=== PATIENT | male | born 2000 | race Caucasian/White ===

== ENCOUNTER 2019-04-23 23:50 | Emergency (ER) | payer SELFPAY ==
[2019-04-24] VITALS: BP 156/86; PULSE 80; RESP 16; TEMP 36.9; O2SAT 97; BMI 22.5
--- NOTE | 2019-04-24 00:09 | ED_ITS ---
Entered by Oly Doll, acting as scribe for Griffin Little DO HPI - Skin/Abscess/Foreign Bdy General: Chief complaint: Skin/Abscess/Foreign Body Stated complaint: R EYE SWELLING Time Seen by Provider: 04/24/19 00:09 Source: patient Mode of arrival: ambulatory Limitations: no limitations History of Present Illness: HPI narrative: 18 yo m came to the er pov for abscess to the rt side of the face. Onset was 4 days ago. Pt states that he poked it with a needle to try and drain it but not a lot came out. Pt states that he had some chills last night. MD complaint: abscess/boil Tetanus up to date: yes Location: face Severity: mild Quality: sharp Pain Consistency: constant Relieving factors: none Exacerbating factors: none Associated symptoms: Reports no associated symptoms; Deny chills, fever(s), nausea or vomiting Treatments prior to arrival: none Review of Systems General: Reports: other (negative unless marked) Const: Denies: fever or chills Eyes: Denies: change in vision or blurry vision ENMT: Reports: facial/sinus pain; Denies: painful swallowing, swelling of lips/tongue, bleeding gums, dental pain, Change in hearing, nose bleeds or post nasal drip Card: Denies: chest pain, irregular heart rhythm, edema, swelling of feet/ankles, shortness of breath on exertion or shortness of breath when lying down Resp: Denies: shortness of breath, productive cough, non-productive cough or wheezing GI: Reports: abdominal pain; Denies: nausea, vomiting, rectal pain, blood in stool or black tarry stool : Denies: difficulty urinating or blood in urine Skin/Breast: Denies: rash, itching or redness Neuro: Denies: headache, dizziness, vertigo, confusion or seizure-like activity PFSH ED PFSH: Statuses (acute, chronic, etc) shown below reflect problem list status as previously entered and may not be historically accurate Social History Smoking and tobacco status: current every day smoker Procedures Abscess I/D Site: face Side (if applicable): right Sedation/analgesia: fentanyl Local Anesthetic: lidocaine 1% Amount of anesthesia used (mL): 5 Technique: incised with #11 blade Irrigation: No Packing used?: plain Course Vital Signs: Vital signs: Vital Signs Temperature 98.5 F 04/24/19 01:30 Pulse Rate 67 04/24/19 01:30 Respiratory Rate 16 04/24/19 01:30 Blood Pressure 131/65 04/24/19 01:30 Pulse Oximetry 98 04/24/19 01:30 Discharge Plan Discharge Patient Disposition: Home, Self-Care Clinical Impression: Abscess of skin or subcutaneous tissue Qualifiers: Site of cutaneous abscess: face Qualified Code(s): L02.01 - Cutaneous abscess of face Condition: Stable Prescriptions: New Bactrim DS 800-160 mg tablet 2 tab PO BID 10 Days Qty: 40 RF: 0 ketorolac 10 mg tablet 10 mg PO Q8H 1 Days Qty: 10 RF: 0 Discharge Orders: Discharge Order (Routine); Ordered 04/24/19 Ordered By: Griffin Little Referrals: Mendel Iglesias MD [Physician] - 1-3 days Discharge Diet: Advance as tolerated Discharge Activity: Resume usual activity Patient Instructions: Abscess (ED) Activity Restrictions/Additional Instructions: Return for worsening swelling, redness, pain despite 3 doses of antibiotics, significant pain with any eyeball movement, worsening of the vision, vomiting liquids or medications, other concerning symptoms. Keep packing in up to 48 hours. You should be seen on Friday for a wound check. This can happen either at urgent care center, or at the ENT surgeons office. Call Friday morning for an appointment with ENT. Discharge Date/Time: 04/24/19 01:31 Coding Level of Care Code ED Fishing Rod Marker for vishal Villalobos The documentation recorded by the Lavon gray Stephanie Lyn, accurately reflects the service I personally performed and the decisions made by Sidney epstein Jeremy John, DO Apr 23, 2019 23:50
[2019-04-24] MEDS: ondansetron 2 mg/ML SDV 2 mL 4 MG IVP (00:33)
[2019-04-24 00:34] VITALS: RESP 16
[2019-04-24] MEDS: fentaNYL 50 mcg/mL INJ 2mL 150 MCG IVP (00:34)
[2019-04-24 01:16] VITALS: RESP 12; O2SAT 99
[2019-04-24] MEDS: oxyCODONE-APAP 5-325 mg Tablet 2 TAB PO (01:16)
[2019-04-24] MEDS: sulfamethoxazole-trimeth DS 160-800 mg Tablet 2 TAB PO (01:17)
[2019-04-24 01:30] VITALS: BP 131/65; PULSE 67; RESP 16; TEMP 36.9; O2SAT 98
--- NOTE | 2019-04-27 10:38 | DCPLANNER ---
water/wastewater project manager had message to scheduled a follow up appointment for patient with Dr. Iglesias, ENT. water/wastewater project manager called the office of Dr. Iglesias, spoke with Etelvina, gave clinic patients information. Clinic will call case maker and patient with appointment information.
--- NOTE | 2019-05-06 10:19 | DCPLANNER ---
adult manager called the ENT clinic, patient did not have an appointment scheduled with clinic. Patient went to [facility] to have packing removed.
== END 2019-04-24 01:31 | disposition home or self-care (01) ==
PROVIDERS: Emergency Provider Emergency Medicine
DX: L02.01 Cutaneous abscess of face (principal); F17.210 Nicotine dependence, cigarettes, uncomplicated
CPT/HCPCS: 10060; 96374; 96375; 99282; 99283; J2405; J3010

== ENCOUNTER → 2020-10-03 14:18 | Outpatient (BNVA) | payer OTHER, SELFPAY | PROVIDERS: Visit Provider Nurse Practitioner Family | DX: Z20.822 Contact with and (suspected) exposure to COVID-19 (principal); J06.9 Acute upper respiratory infection, unspecified | CPT/HCPCS: 87635 ==

== ENCOUNTER 2021-10-03 17:57 | Emergency (ER) | payer OTHER, SELFPAY ==
--- NOTE | 2021-10-03 17:58 | ECG_ITS ---
[facility] Test Date: 2021-10-03 Pat Name: Hugo Degroot Department: Room: Gender: Male It Telecom Technician: : 2000 Requested By: Garfield Millard Order Number: [id number] Malika MD: Segundo Conway M.D. Measurements Intervals [place] Rate: 85 P: 78 OR: 182 QRS: 91 QRSD: 102 T: 59 QT: 385 QTc: 459 Interpretive Statements SINUS RHYTHM LEFT ATRIAL ENLARGEMENT [-0.15mV P-WAVE IN V1/V2] BORDERLINE RIGHT AXIS DEVIATION [QRS AXIS > 90] POSSIBLE RIGHT VENTRICULAR CONDUCTION DELAY [RSR (QR) IN V1/V2] ST DEVIATION AND MODERATE T-WAVE ABNORMALITY, CONSIDER ANTERIOR ISCHEMIA [-0.1+ mV T-WAVE IN V3/V4] No previous ECG available for comparison Electronically Signed On 10-04-2021 21:13:01 CDT by Segundo Conway M.D. [email or web address]/[id number]
[2021-10-03 18:28] VITALS: BP 101/58; PULSE 108; RESP 16; TEMP 36.9; O2SAT 99; BMI 24.3
== END 2021-10-03 19:16 | disposition left against medical advice (07) ==
PROVIDERS: Emergency Provider Family Medicine
DX: Z53.21 Procedure and treatment not carried out due to patient leaving prior to being seen by health care provider (principal)
CPT/HCPCS: 93005

== ENCOUNTER 2021-10-04 07:57 | Emergency (ER) | payer OTHER, SELFPAY ==
[2021-10-04] VITALS (9 sets, daily range): BP systolic 114–133; BP diastolic 45–89; PULSE 73–89; RESP 16–18; TEMP 36.4; O2SAT 96–100; BMI 24.3
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
--- NOTE | 2021-10-04 08:21 | ECG_ITS ---
[facility] Test Date: 2021-10-04 Pat Name: Hugo Degroot Department: Room: Gender: Male Director Museum Or Zoo: : 2000 Requested By: Marito Hunter Order Number: [id number] Malika MD: Segundo Conway M.D. Measurements Intervals [place] Rate: 71 P: -15 GA: 185 QRS: -31 QRSD: 105 T: -13 QT: 358 QTc: 390 Interpretive Statements SINUS RHYTHM POSSIBLE LEFT ATRIAL ENLARGEMENT [-0.1mV P-WAVE IN V1/V2] LEFT AXIS DEVIATION [QRS AXIS < -30] POSSIBLE RIGHT VENTRICULAR CONDUCTION DELAY [RSR (QR) IN V1/V2] POSSIBLE LEFT VENTRICULAR HYPERTROPHY [VOLTAGE CRITERIA PLUS LAE OR QRS WIDENING] MODERATE ST DEPRESSION [0.05+ mV ST DEPRESSION] Compared to ECG 10/03/2021 18:36:57 Left-axis deviation now present ST (T wave) deviation now present T-wave abnormality no longer present Possible ischemia no longer present Electronically Signed On 10-04-2021 21:15:04 CDT by Segundo Conway M.D. [email or web address]/[id number]
[2021-10-04] MEDS: LORazepam 1 mg Tablet PO (09:02)
[2021-10-04] MEDS: ondansetron 2 mg/ML SDV 2 mL 4 MG IVP (09:13)
[2021-10-04] MEDS: sodium chloride 0.9% 1,000 ML 999 ML IV (09:13)
[2021-10-04 09:22] LABS: Basophils % 0.4 %; Eosinophils % 0.4 %; Hematocrit 49.1 % (42.0-52.0); Hemoglobin 16.2 g/dL (11.7-16.6); Lymphocytes # 1.6 10^3/uL (0.8-4.8); Lymphocytes % 15.9 %; Mean Corpuscular Hemoglobin 31.4 pg (28.0-34.0); Mean Corpuscular Volume 95.2 fl (80-94); Mean Platelet Volume 10.5 fL (7.4-10.4); Monocytes # 0.6 10^3/uL (0.2-0.9); Monocytes % 6.2 %; Neutrophils # 7.58 10^3/uL (1.8-7.7); Neutrophils % 76.8 %; Nucleated Red Blood Cells % 0 %; Platelet Count 213 10^3/cmm (130-400); Red Blood Count 5.16 10^6/uL (4.1-5.3); Red Cell Distribution Width 11.9 % (12.1-15.1); White Blood Count 9.9 10^3/uL (4.0-10.0)
[2021-10-04 09:44] LABS: Alanine Aminotransferase 13 U/L (0-41); Albumin Level 4.9 g/dL (3.5-5.2); Alkaline Phosphatase 88 IU/L (40-130); Anion Gap 17.4 (5-19); Aspartate Amino Transferase 15 U/L (0-40); Blood Urea Nitrogen 9 mg/dL (6-20); Calcium 10.1 mg/dL (8.5-10.5); Carbon Dioxide 24 mmol/L (22-29); Chloride 104 mmol/L (98-107); Globulin 2.4 g/dL (1.3-4.6); Glomerular Filtration Rate 104.6 mL/min (90-130); Glucose 77 mg/dL (65-115); Lipase 12 U/L (13-60); Osmolality Calculated 291 mOsm/kg (285-295); Potassium 3.4 mmol/L (3.5-5.1); Sodium 142 mmol/L (136-145); Total Bilirubin 0.9 mg/dL (0.15-1.2); Total Protein 7.3 g/dL (6.6-8.7)
[2021-10-04 09:58] LABS: Add Urine Microscopic? NO; Charge for UA Resulting for Rev
[2021-10-04 10:10] LABS: Bilirubin Urine Neg (Negative); Blood Urine Neg (Negative); Glucose Urine UA Norm (Normal); Ketones Urine Negative (Negative); Leukocyte Esterase Urine Negative (Negative); Nitrate Urine Negative (Negative); Protein Urine Neg (Negative); Urine Appearance Clear (CLEAR); Urine Color Yellow (Yellow); Urobilinogen Urine Norm (Negative); pH Urine 7 (5-7)
[2021-10-04] MEDS: metoclopramide 5 mg/mL SDV 2 mL 10 MG IVP (10:38)
[2021-10-04] MEDS: diphenhydrAMINE 50 mg/mL SDV 1mL IVP (11:29)
== END 2021-10-04 12:23 | disposition home or self-care (01) ==
PROVIDERS: Emergency Provider Physician Assistant
DX: R11.0 Nausea (principal); F41.9 Anxiety disorder, unspecified; F17.210 Nicotine dependence, cigarettes, uncomplicated
CPT/HCPCS: 80053; 81003; 83690; 85025; 93005; 96361; 96374; 96375; 99284; J1200; J2405; J2765; J2930; J7030

== ENCOUNTER 2021-10-06 09:18 | Emergency (ER) | payer OTHER, SELFPAY ==
[2021-10-06 09:20] VITALS: BP 156/101; PULSE 778; RESP 16; TEMP 36.7; O2SAT 100; BMI 24.3
--- NOTE | 2021-10-06 09:24 | ECG_ITS ---
[facility] Test Date: 2021-10-06 Pat Name: Hugo Degroot Department: Room: Gender: Male Wellness Nurse Rn: : 2000 Requested By: Jose Carpio Order Number: [id number] Malika MD: Segundo Conway M.D. Measurements Intervals [place] Rate: 76 P: 67 NE: 161 QRS: 89 QRSD: 101 T: 61 QT: 373 QTc: 419 Interpretive Statements SINUS RHYTHM LEFT ATRIAL ENLARGEMENT [-0.15mV P-WAVE IN V1/V2] INCOMPLETE RIGHT BUNDLE BRANCH BLOCK [90+ ms QRS DURATION, TERMINAL R IN V1/V2, 40+ ms S IN I/aVL/V4/V5/V6] ST DEVIATION AND MODERATE T-WAVE ABNORMALITY, CONSIDER ANTERIOR ISCHEMIA [-0.1+ mV T-WAVE IN V3/V4] Compared to ECG 10/04/2021 08:29:43 Incomplete right bundle-branch block now present T-wave abnormality now present Possible ischemia now present Left-axis deviation no longer present ST (T wave) deviation no longer present Electronically Signed On 10-06-2021 20:15:57 CDT by Segundo Conway M.D. [id number]
--- NOTE | 2021-10-06 09:24 | XRR_ITS ---
PROCEDURE INFORMATION: Exam: XR Chest Exam date and time: 10/06/2021 9:50 AM Age: 21 years old Clinical indication: Dyspnea; Patient HX: Anxiety; Additional info: Dizziness TECHNIQUE: Imaging protocol: Radiologic exam of the chest. Views: 1 view. COMPARISON: No relevant prior studies available. FINDINGS: Lungs: There are normal lung volumes without interstitial or airspace opacities. Pleural spaces: There are no pleural effusions or pneumothorax. Heart/Mediastinum: The heart size is normal. The mediastinal contour is normal. The trachea is in the midline. Bones/joints: No acute abnormalities. XR/XR chest 1V portable [id number] IMPRESSION: No chest radiographic evidence of acute cardiopulmonary disease.
[2021-10-06 09:45] VITALS: BP 148/85; PULSE 63; RESP 16; O2SAT 98
[2021-10-06 09:52] LABS: Basophils # 0.1 10^3/uL (0.0-0.1); Basophils % 0.6 %; Eosinophils % 0.4 %; Hematocrit 52.4 % (42.0-52.0); Hemoglobin 18.1 g/dL (11.7-16.6); Lymphocytes # 1.6 10^3/uL (0.8-4.8); Lymphocytes % 18.9 %; Mean Corpuscular HGB Conc 34.5 g/dL (30.0-36.0); Mean Corpuscular Hemoglobin 31.6 pg (28.0-34.0); Mean Corpuscular Volume 91.6 fl (80-94); Mean Platelet Volume 10.7 fL (7.4-10.4); Monocytes # 0.3 10^3/uL (0.2-0.9); Neutrophils # 6.42 10^3/uL (1.8-7.7); Nucleated Red Blood Cells % 0 %; Platelet Count 210 10^3/cmm (130-400); Red Blood Count 5.72 10^6/uL (4.1-5.3); Red Cell Distribution Width 11.8 % (12.1-15.1); White Blood Count 8.5 10^3/uL (4.0-10.0)
--- NOTE | 2021-10-06 09:58 | W.ED.GENADLT ---
HPI - General Adult General: Chief complaint: General Medical Stated complaint: DEHYDRATION; ANXIETY Time Seen by Provider: 10/06/21 09:19 History of Present Illness: Patient presents with feeling of dizziness when he stands up along with severe anxiety. Patient has been seen in the ER couple times with negative evaluations. Patient reports that he was given hydroxyzine and that seems to help a little bit with his anxiety but he is continue to feel like he has anxiety issues. Patient reports that he used to use marijuana daily all day long but stopped approximately 5 days ago. Patient symptoms started a couple days ago shortly after that. Patient is concerned that he still might be a little bit dehydrated. Denies shortness of breath, chest pain, fevers chills nausea or vomiting. Associated symptoms: Deny chest pain, dyspnea, headache(s), nausea, rash, palpitations or vomiting Review of Systems Const: Denies: fever(s) or chills Card: Denies: chest pain or palpitations Resp: Denies: dyspnea, productive cough or wheezing GI: Denies: abdominal pain, nausea or vomiting : Denies: flank pain or difficulty urinating Musc: Denies: neck pain, back pain or extremity pain Skin/Breast: Denies: rash or pruritus Neuro: Reports: dizziness; Denies: headache(s) Psych: Reports: anxiety PFSH ED PFSH: Medical History No pertinent family history Surgical History No pertinent past surgical history Social History Smoking and tobacco status: current every day smoker Alcohol intake: current Physical Exam Const: COMMON NORMALS: no acute distress, average body habitus and patient oriented x3 HENMT: COMMON NORMALS: normocephalic, atraumatic and hearing grossly normal bilaterally HEAD & SCALP: normocephalic and atraumatic Eye: COMMON NORMALS: Equal, round and reactive pupils present and EOMs intact bilaterally PUPIL: Yes Equal, round and reactive pupils present Resp: COMMON NORMALS: normal respiratory effort, No retractions, No use of accessory muscles and clear to auscultation bilaterally AUSCULTATION: clear to auscultation bilaterally Cardio: COMMON NORMALS: regular rate and regular rhythm RATE: regular rate RHYTHM: regular rhythm GI: COMMON NORMALS: Soft to palpation and non-tender PALPATION: Yes Soft to palpation Extremity: COMMON NORMALS: normal to inspection and capillary refill normal Neuro: COMMON NORMALS: patient oriented x3, CN's II-XII intact bilaterally, moves all extremities and no focal motor deficits Psych: COMMON NORMALS: mental status grossly normal SPEECH: Yes rapid MOOD & AFFECT: Yes anxious Skin: COMMON NORMALS: no rashes or lesions noted and turgor normal GENERAL SKIN EXAM: no rashes or lesions noted and turgor normal Course Vital Signs: Vital signs: Vital Signs Temperature 98.1 F 10/06/21 09:20 Pulse Rate 63 10/06/21 09:45 Respiratory Rate 16 10/06/21 09:45 Blood Pressure 148/85 10/06/21 09:45 Pulse Oximetry 98 10/06/21 09:45 [facility] - General Adult Medical Decision Making Patient symptoms likely due to anxiety with probably some withdrawal from marijuana since he reports he used to use marijuana daily all day long and has not used in 4 to 5 days. Discussed need for patient to follow-up with behavioral health next week to help with some coping skills and long-term management. Patient stable and discharged home Lab Data : 10/06/21 09:45 10/06/21 09:45 Radiology Impressions Chest X-Ray 10/06/21 09:24 IMPRESSION: No chest radiographic evidence of acute cardiopulmonary disease. Laboratory Results WBC 8.5 10^3/uL (4.0-10.0) 10/06/21 09:45 RBC 5.72 10^6/uL (4.1-5.3) H 10/06/21 09:45 Hgb 18.1 g/dL (11.7-16.6) H 10/06/21 09:45 Hct 52.4 % (42.0-52.0) H 10/06/21 09:45 MCV 91.6 fl (80-94) 10/06/21 09:45 MCH 31.6 pg (28.0-34.0) 10/06/21 09:45 MCHC 34.5 g/dL (30.0-36.0) 10/06/21 09:45 RDW 11.8 % (12.1-15.1) L 10/06/21 09:45 Plt Count 210 10^3/cmm (130-400) 10/06/21 09:45 MPV 10.7 fL (7.4-10.4) H 10/06/21 09:45 Neut % (Auto) 76.0 % 10/06/21 09:45 Lymph % (Auto) 18.9 % 10/06/21 09:45 [place] % (Auto) 4.0 % 10/06/21 09:45 Eos % (Auto) 0.4 % 10/06/21 09:45 Baso % (Auto) 0.6 % 10/06/21 09:45 Neut # (Auto) 6.42 10^3/uL (1.8-7.7) 10/06/21 09:45 Lymph # (Auto) 1.6 10^3/uL (0.8-4.8) 10/06/21 09:45 [place] # (Auto) 0.3 10^3/uL (0.2-0.9) 10/06/21 09:45 Eos # (Auto) 0.0 10^3/uL (0.0-0.8) 10/06/21 09:45 Baso # (Auto) 0.1 10^3/uL (0.0-0.1) 10/06/21 09:45 Nucleated RBC % (auto) 0 % 10/06/21 09:45 Nucleated RBCs # 0.0 /100WBC 10/06/21 09:45 Sodium 145 mmol/L (136-145) 10/06/21 09:45 Potassium 3.8 mmol/L (3.5-5.1) 10/06/21 09:45 Chloride 103 mmol/L (98-107) 10/06/21 09:45 Carbon Dioxide 28 mmol/L (22-29) 10/06/21 09:45 Anion Gap 17.8 (5-19) 10/06/21 09:45 BUN 9 mg/dL (6-20) 10/06/21 09:45 Creatinine 0.8 mg/dL (0.7-1.2) 10/06/21 09:45 GFR Calculation 119.8 mL/min (90-130) 10/06/21 09:45 Glucose 115 mg/dL (65-115) 10/06/21 09:45 Calculated Osmolality 300 mOsm/kg (285-295) H 10/06/21 09:45 Calcium 10.7 mg/dL (8.5-10.5) H 10/06/21 09:45 Magnesium 1.8 mg/dL (1.7-2.3) 10/06/21 09:45 Total Bilirubin 0.6 mg/dL (0.15-1.2) 10/06/21 09:45 AST 13 U/L (0-40) 10/06/21 09:45 ALT 14 U/L (0-41) 10/06/21 09:45 Alkaline Phosphatase 90 IU/L (40-130) 10/06/21 09:45 Troponin T Gen 5 ng/L 11 ng/L (0-15) 10/06/21 09:45 Total Protein 7.7 g/dL (6.6-8.7) 10/06/21 09:45 Albumin 5.7 g/dL (3.5-5.2) H 10/06/21 09:45 Globulin 2.0 g/dL (1.3-4.6) 10/06/21 09:45 Urine Color Straw (Yellow) 10/06/21 10:40 Urine Appearance Clear (CLEAR) 10/06/21 10:40 Urine pH 7 (5-7) 10/06/21 10:40 Ur Specific Prim 1.005 (1.005-1.030) 10/06/21 10:40 Urine Protein Neg (Negative) 10/06/21 10:40 Urine Glucose (UA) Norm (Normal) 10/06/21 10:40 Urine Ketones Negative (Negative) 10/06/21 10:40 Urine Blood Neg (Negative) 10/06/21 10:40 Urine Nitrate Negative (Negative) 10/06/21 10:40 Urine Bilirubin Neg (Negative) 10/06/21 10:40 Urine Urobilinogen Norm mg/dL (Negative) 10/06/21 10:40 Ur Leukocyte Esterase Negative (Negative) 10/06/21 10:40 Urine Opiates Screen Negative ng/mL (Negative) 10/06/21 10:40 Ur Barbiturates Screen Negative ng/mL (Negative) 10/06/21 10:40 Ur Phencyclidine Scrn Negative ng/mL (Negative) 10/06/21 10:40 Ur Amphetamines Screen Negative ng/mL (Negative) 10/06/21 10:40 U Benzodiazepines Scrn Negative ng/mL (Negative) 10/06/21 10:40 Urine Cocaine Screen Negative ng/mL (Negative) 10/06/21 10:40 U Marijuana (THC) Screen Positive ng/mL (Negative) H 10/06/21 10:40 EKG Data EKG 1: I personally reviewed and interpreted this EKG as follows: EKG interpretation date: 10/06/21 EKG interpretation time: 09:33 Interpretation: nsr, hr 76, pr 161, qtc 403, unchanged from 10/04/21 Computer generated interpretation: Chest X-Ray 10/06/21 09:24 IMPRESSION: No chest radiographic evidence of acute cardiopulmonary disease. Discharge Plan Discharge Condition: Stable Prescriptions: No Action ondansetron 4 mg tablet,disintegrating 4 mg PO Q8H PRN (Reason: nausea and vomiting) Qty: 20 0RF Vistaril 50 mg capsule 50 mg PO Q8H PRN (Reason: acute anxiety) Qty: 30 0RF Coding Level of Care Code ED Painter Assistant for Chg Fwd Exam Comprehensive
[2021-10-06] MEDS: lactated ringers 1,000 ML 999 ML IV (10:03)
[2021-10-06 10:14] LABS: Alanine Aminotransferase 14 U/L (0-41); Albumin Level 5.7 g/dL (3.5-5.2); Alkaline Phosphatase 90 IU/L (40-130); Anion Gap 17.8 (5-19); Aspartate Amino Transferase 13 U/L (0-40); Blood Urea Nitrogen 9 mg/dL (6-20); Calcium 10.7 mg/dL (8.5-10.5); Carbon Dioxide 28 mmol/L (22-29); Chloride 103 mmol/L (98-107); Glomerular Filtration Rate 119.8 mL/min (90-130); Glucose 115 mg/dL (65-115); Magnesium 1.8 mg/dL (1.7-2.3); Osmolality Calculated 300 mOsm/kg (285-295); Potassium 3.8 mmol/L (3.5-5.1); Sodium 145 mmol/L (136-145); Total Bilirubin 0.6 mg/dL (0.15-1.2); Total Protein 7.7 g/dL (6.6-8.7)
[2021-10-06 10:16] LABS: Troponin T (5th) Once 11 ng/L (0-15)
[2021-10-06 10:47] LABS: Add Urine Microscopic? NO; Charge for UA Resulting for Rev
[2021-10-06 11:03] LABS: Bilirubin Urine Neg (Negative); Blood Urine Neg (Negative); Glucose Urine UA Norm (Normal); Ketones Urine Negative (Negative); Leukocyte Esterase Urine Negative (Negative); Nitrate Urine Negative (Negative); Protein Urine Neg (Negative); Specific Gravity, Urine 1.005 (1.005-1.030); Urine Appearance Clear (CLEAR); Urine Color Straw (Yellow); Urobilinogen Urine Norm (Negative); pH Urine 7 (5-7)
[2021-10-06 11:12] LABS: Amphetamines Screen Urine Negative (Negative); Barbiturates Screen Urine Negative (Negative); Benzodiazepines Screen Urine Negative (Negative); Cocaine Screen Urine Negative (Negative); Opiate Screen Urine Negative (Negative); PCP Screen Urine Negative (Negative); THC Screen Urine Positive (Negative)
== END 2021-10-06 11:34 | disposition home or self-care (01) ==
PROVIDERS: Emergency Provider Student in an Organized Health Care Education/Training Program
DX: R42 Dizziness and giddiness (principal); F41.9 Anxiety disorder, unspecified; F17.210 Nicotine dependence, cigarettes, uncomplicated
CPT/HCPCS: 71045; 80053; 80306; 81003; 83735; 84484; 85025; 93005; 96360; 99285

== ENCOUNTER 2022-05-02 18:31 | Emergency (ER) | payer OTHER, SELFPAY ==
[2022-05-02 19:15] VITALS: BP 146/84; PULSE 74; RESP 17; TEMP 37.1; O2SAT 98; BMI 26.2
--- NOTE | 2022-05-02 19:40 | XRR_ITS ---
PROCEDURE INFORMATION: Exam: XR Right Tibia and Fibula Exam date and time: 05/02/2022 7:54 PM Age: 21 years old Clinical indication: Pain; Lower leg; Right; Patient HX: Kicked freezer 04/26/2022; Additional info: Pain and swelling TECHNIQUE: Imaging protocol: Radiologic exam of the Right tibia and fibula. Views: 2 views. COMPARISON: No relevant prior studies available. FINDINGS: Bones/joints: Normal. Soft tissues: Lower kaplan soft tissue swelling. XR/XR tibia fibula RT 2V [id number] IMPRESSION: 1. No acute osseous findings. 2. Lower kaplan soft tissue swelling.
--- NOTE | 2022-05-02 19:40 | XRR_ITS ---
PROCEDURE INFORMATION: Exam: XR Right Ankle Exam date and time: 05/02/2022 7:54 PM Age: 21 years old Clinical indication: Pain; Ankle; Right; Patient HX: Kicked freezer 04/26/2022; Additional info: Pain and swelling after trauma TECHNIQUE: Imaging protocol: Radiologic exam of the Right ankle. Views: 3 or more views. COMPARISON: No relevant prior studies available. FINDINGS: Bones/joints: Normal. Soft tissues: Soft tissue swelling. XR/XR ankle RT min 3V* [id number] IMPRESSION: Negative for osseous injury.
--- NOTE | 2022-05-02 19:46 | ED_ITS ---
HPI - Extremity Problem General: Chief complaint: Extremity Injury, Lower Stated complaint: right leg injury Time Seen by Provider: 05/02/22 19:46 History of Present Illness: 21-year-old gentleman without significant past medical history presenting to the emergency department for leg injury. He reports a few days ago getting angry and kicking a freezer. Primarily the had initial impact on the lateral anterior surface of his kaplan however also hit his foot. He reports not having significant pain initially but however has had increased swelling, pain, tingling. He does have a history of poor circulation. He notes obvious contusion. Symptoms not improved with ibuprofen. No other specific changes in health, exacerbating, or alleviating factors identified. Onset (ago): hour(s) Pain Consistency: constant Location: lower extremity Quality: aching Relieving factors: nothing Exacerbating factors: weight bearing, walking and palpation Associated symptoms: Reports no associated symptoms Review of Systems General: Reports: 10 or more systems reviewed and unremarkable except in HPI and below PFSH ED PFSH: Medical History No pertinent family history Surgical History No pertinent past surgical history Social History Smoking and tobacco status: current every day smoker Alcohol intake: current Physical Exam Const: COMMON NORMALS: alert GENERAL APPEARANCE: cooperative and well developed HENMT: COMMON NORMALS: normocephalic and atraumatic HEAD & SCALP: normocephalic and atraumatic THROAT: posterior oropharynx normal Eye: COMMON NORMALS: conjunctivae normal CONJUNCTIVA: Yes conjunctivae normal SCLERA: sclerae normal Neck/C-Spine: COMMON NORMALS: supple GENERAL: Yes trachea midline Resp: COMMON NORMALS: clear to auscultation bilaterally EFFORT & INSPECTION: Yes able to speak in complete sentences AUSCULTATION: clear to auscultation bilaterally Cardio: COMMON NORMALS: regular rate and regular rhythm RATE: regular rate RHYTHM: regular rhythm GI: COMMON NORMALS: Soft to palpation PALPATION: Yes Soft to palpation and No Tenderness to palpation present (GI) Extremity: GENERAL: Yes normal exam except as noted and No edema Neuro: COMMON NORMALS: moves all extremities SENSORIUM/ORIENTATION: Yes alert and No Orientation impaired Psych: COMMON NORMALS: mental status grossly normal and Normal thought process present THOUGHT PROCESS: Normal thought process present Course Vital Signs: Vital signs: Vital Signs Temperature 98.8 F 05/02/22 19:15 Pulse Rate 83 05/02/22 20:55 Respiratory Rate 20 H 05/02/22 20:55 Blood Pressure 146/84 05/02/22 19:15 Pulse Oximetry 100 05/02/22 20:55 MDM - Extremity (Nontraumatic) Medical Decision Making 22-year-old male who presented with right lower extremity injury and contusion secondary to kicking stationary object. Exam notable for contusion and patient to the anterior distal right kaplan and right lateral ankle. Tenderness palpation. CMS intact. Patient Dors history of. Patient leg temperature/color is similar compared to contralateral non Traumatically injured side. X-rays negative. Most likely etiology of symptoms is soft tissue injury and contusion. Patient have underlying dementia seizure given distribution of bruising and regions of tenderness to palpation. Patient given analgesia with improvement. The results of ED evaluation were discussed with the patient including prescriptions and/or symptomatic cares (if applicable) including appropriate and responsible use, followup plan, and return precautions. The patient verbalized understanding and felt safe for discharge. Medical Records I reviewed the patient's medical records. Lab Data I reviewed the patient's lab results. Radiology Impressions Ankle X-Ray 05/02/22 19:40 IMPRESSION: Negative for osseous injury. Tibia/Fibula X-Ray 05/02/22 19:40 IMPRESSION: 1. No acute osseous findings. 2. Lower kaplan soft tissue swelling. Discharge Plan Discharge Patient Disposition: Home Clinical Impression: Ankle sprain and strain, Contusion of multiple sites of right leg Condition: Stable Prescriptions: New oxycodone 5 mg tablet 5 mg PO Q4H PRN (Reason: pain) Qty: 10 0RF No Action ondansetron 4 mg tablet,disintegrating 4 mg PO Q8H PRN (Reason: nausea and vomiting) Qty: 20 0RF Vistaril 50 mg capsule 50 mg PO Q8H PRN (Reason: acute anxiety) Qty: 30 0RF Discharge Orders: Discharge ED (Routine); Ordered 05/02/22 Ordered By: Rony Gonzalez Discharge Diet: Usual diet Discharge Activity: Increase activity as tolerated Patient Instructions: Ankle Sprain (ED), Contusion in Adults (ED), Opioid Safety Activity Restrictions/Additional Instructions: Thank you for visiting the emergency department. You were seen and evaluated for leg injury. The exact cause of your symptoms is unclear though likely related to soft tissue deep bruising and ligamentous strain. You may use [id number] medications such as acetaminophen and ibuprofen for pain however please do not exceed the daily recommended dosage as listed on the packaging and please keep in mind that many namebrand medications contain the same active ingredients. Please avoid these medications if previously instructed to do so by another physician due to other underlying medical condition. I will prescribe oxycodone for severe pain, use this cautiously. Please follow-up with your primary care provider. If pain persists I recommend follow-up with orthopedics or podiatry. Return to the emergency department for uncontrolled symptoms or anything else that you are concerned about and feel needs emergency department evaluation. Coding Level of Care Code ED Driver Material Handler for Violet Villalobos
[2022-05-02] MEDS: oxyCODONE 5 mg IR Tab/Cap PO (20:48)
[2022-05-02 20:55] VITALS: PULSE 83; RESP 20; O2SAT 100
== END 2022-05-02 20:55 | disposition home or self-care (01) ==
PROVIDERS: Emergency Provider Emergency Medicine
DX: S93.401A Sprain of unspecified ligament of right ankle, initial encounter (principal); S96.911A Strain of unspecified muscle and tendon at ankle and foot level, right foot, initial encounter; S80.11XA Contusion of right lower leg, initial encounter; S90.01XA Contusion of right ankle, initial encounter; W22.09XA Striking against other stationary object, initial encounter
CPT/HCPCS: 73590; 73610; 99283

== ENCOUNTER 2022-08-01 07:23 | Emergency (ER) | payer OTHER, SELFPAY ==
[2022-08-01 07:28] VITALS: BP 156/91; PULSE 96; RESP 16; TEMP 36.8; O2SAT 98; BMI 27.2
--- NOTE | 2022-08-01 07:39 | CT_ITS ---
WS: [id number] CT HEAD NONCONTRAST HISTORY: first migraine headache TECHNIQUE: Contiguous axial imaging performed through the brain in 2.5 mm imaging. Bone and soft tiss ue windows. Sagittal and coronal reformats reviewed. All CT scans at [facility] use at least one of these dose optimization techniques: automated exposure control; mA and/or kV adjustment per pa tient size (includes targeted exams where dose is matched to clinical indication); or iterative recon struction. DLP: 1040.73 mGy.cm COMPARISON: None available. No acute intracranial hemorrhage, midline shift or mass effect. No atrophy or prior infarcts or herniation. Ventricles: Normal size with no hydrocephalus. Paranasal sinuses: As visualized are clear. Mastoid air cells: Well pneumatized. Calvarium and scalp: Skull is intact with no soft tissue edema or swelling. CT/CT head wo con* [id number] IMPRESSION: Negative head CT.
[2022-08-01 07:46] LABS: Basophils % 0.2 %; Eosinophils # 0.1 10^3/uL (0.0-0.8); Eosinophils % 0.8 %; Hemoglobin 18.2 g/dL (11.7-16.6); Lymphocytes # 0.8 10^3/uL (0.8-4.8); Lymphocytes % 8.4 %; Mean Corpuscular HGB Conc 34.3 g/dL (30.0-36.0); Mean Corpuscular Hemoglobin 31.4 pg (28.0-34.0); Mean Corpuscular Volume 91.5 fl (80-94); Mean Platelet Volume 10.4 fL (7.4-10.4); Monocytes # 0.4 10^3/uL (0.2-0.9); Monocytes % 4.7 %; Neutrophils # 8.08 10^3/uL (1.8-7.7); Neutrophils % 85.7 %; Nucleated Red Blood Cells % 0 %; Platelet Count 175 10^3/cmm (130-400); Red Blood Count 5.79 10^6/uL (4.1-5.3); Red Cell Distribution Width 12.2 % (12.1-15.1); White Blood Count 9.4 10^3/uL (4.0-10.0)
[2022-08-01] MEDS: ondansetron 2 mg/ML SDV 2 mL 4 MG IVP (07:47)
[2022-08-01] MEDS: sodium chloride 0.9% 1,000 ML 999 ML IV (07:47)
--- NOTE | 2022-08-01 07:50 | ED_ITS ---
HPI - Headache General: Chief Complaint: Nausea/Vomiting/Diarrhea Stated Complaint: n/v/headache Time Seen by Provider: 08/01/22 07:25 History of Present Illness: Patient is a 22-year-old male who comes to the ED with headache, nausea and vomiting. Patient denies any history of migraine headaches and says this is the worst headache he has ever had. Symptoms started yesterday. Headache is described as a throbbing type pain in the frontal region of scalp. He rates the headache a 6 out of 10 and says it was worse this morning before he took the 800 mg of ibuprofen. He has been having nausea and vomiting along with this headache. Lights make headache worse. Denies any neurological symptoms such as numbness tingling or weakness to 1 side of his body or face or vision changes. Associated symptoms: Reports nausea and vomiting; Deny chest pain, fever(s) or rash Review of Systems Const: Denies: fever(s), chills or fatigue Eyes: Denies: change in vision or eye discomfort ENMT: Denies: throat pain, odynophagia, nasal discharge or nasal congestion Card: Denies: chest pain, palpitations, edema, swelling of feet/ankles, dyspnea on exertion or orthopnea Resp: Denies: dyspnea, productive cough or non-productive cough GI: Reports: nausea and vomiting; Denies: abdominal pain, diarrhea, constipation or hematochezia : Denies: flank pain, difficulty urinating, dysuria or hematuria Musc: Denies: neck pain, back pain or extremity swelling Skin/Breast: Denies: rash or new lesions Neuro: Reports: headache(s); Denies: numbness in extremities or weakness in extremities [facility] ED PFSH: Medical History No pertinent family history Surgical History No pertinent past surgical history Social History Smoking and tobacco status: current every day smoker Alcohol intake: current Substance/Drug Use: current Physical Exam Const: COMMON NORMALS: no acute distress, patient oriented x3, healthy appearing and alert HENMT: COMMON NORMALS: normocephalic HEAD & SCALP: normocephalic MOUTH: Normal oral and palatal mucosa present THROAT: posterior oropharynx normal and uvula midline Eye: COMMON NORMALS: Equal, round and reactive pupils present, EOMs intact bilaterally and conjunctivae normal CONJUNCTIVA: Yes conjunctivae normal PUPIL: Yes Equal, round and reactive pupils present Neck/C-Spine: COMMON NORMALS: supple GENERAL: Yes normal visual inspection Resp: COMMON NORMALS: normal respiratory effort, No retractions, No use of accessory muscles and clear to auscultation bilaterally AUSCULTATION: clear to auscultation bilaterally Cardio: COMMON NORMALS: regular rate, regular rhythm, S1 normal heart sound present, S2 normal heart sound present, No gallops present (Cardio), No clicks p resent (Cardio), No murmurs present (Cardio) and Peripheral pulses 2+ throughout RATE: regular rate RHYTHM: regular rhythm HEART SOUNDS: S1 normal heart sound present and S2 normal heart sound present PERIPHERAL PULSES: Peripheral pulses 2+ throughout GI: COMMON NORMALS: Normal to inspection, nondistended, normoactive bowel sounds present, Soft to palpation, non-tender and no masses PALPATION: Yes Soft to palpation : COMMON NORMALS: Yes no CVA tenderness BLADDER/KIDNEY EXAM: Yes no CVA tenderness Back/Pelvis: COMMON NORMALS: no CVA tenderness Extremity: COMMON NORMALS: normal to inspection Neuro: COMMON NORMALS: patient oriented x3, CN's II-XII intact bilaterally, moves all extremities, no focal motor deficits, no sensory deficits noted and gait normal SENSORIUM/ORIENTATION: Yes alert SPEECH: speech normal GAIT: Yes Normal gait present Skin: GENERAL SKIN EXAM: dry skin Course Vital Signs: Vital signs: Vital Signs Temperature 98.2 F 08/01/22 07:28 Pulse Rate 76 08/01/22 08:50 Respiratory Rate 18 08/01/22 08:50 Blood Pressure 137/72 08/01/22 08:50 Pulse Oximetry 100 08/01/22 08:50 Oxygen Delivery Me thod Room Air 08/01/22 08:09 MDM - Headache Medical Decision Making Patient is a 22-year-old male who comes to the ED with headache, nausea and vo miting. Patient denies any history of migraine headaches and says this is the worst headache he has ever had. Symptoms started yesterday. Headache is described as a throbbing type pain in the frontal region of scalp. He rates the headache a 6 out of 10 and says it was worse this morning before he took the 800 mg of ibuprofen. He has been having nausea and vomiting along with this headache. Lights make headache worse. Denies any neurological symptoms such as numbness tingling or weakness to 1 side of his body or face or vision changes. Vitals are stable. Exam is normal and neuro exam shows no deficits. Labs are all unremarkable. Head CT shows no acute findings. Patient was given a dose of IV fluids, nausea meds, Benadryl, Decadron and sumatriptan. His headache completely resolved. He was stable for discharge home and diagnosed with migraine headache. Told to follow-up with his PCP in the next week for reevaluation. Return to ED precautions given. Patient understood and agreed with plan. Lab Data I reviewed the patient's lab results. 08/01/22 07:36 08/01/22 07:[address] 08/01/22 07:39 IMPRESSION: Negative head CT. Laboratory Results WBC 9.4 10^3/uL (4.0-10.0) 08/01/22 07:36 RBC 5.79 10^6/uL (4.1-5.3) H 08/01/22 07:36 Hgb 18.2 g/dL (11.7-16.6) H 08/01/22 07:36 Hct 53.0 % (42.0-52.0) H 08/01/22 07:36 MCV 91.5 fl (80-94) 08/01/22 07:36 MCH 31.4 pg (28.0-34.0) 08/01/22 07:36 MCHC 34.3 g/dL (30.0-36.0) 08/01/22 07:36 RDW 12.2 % (12.1-15.1) 08/01/22 07:36 Plt Count 175 10^3/cmm (130-400) 08/01/22 07:36 MPV 10.4 fL (7.4-10.4) 08/01/22 07:36 Neut % (Auto) 85.7 % 08/01/22 07:36 Lymph % (Auto) 8.4 % 08/01/22 07:36 [place] % (Auto) 4.7 % 08/01/22 07:36 Eos % (Auto) 0.8 % 08/01/22 07:36 Baso % (Auto) 0.2 % 08/01/22 07:36 Neut # (Auto) 8.08 10^3/uL (1.8-7.7) H 08/01/22 07:36 Lymph # (Auto) 0.8 10^3/uL (0.8-4.8) 08/01/22 07:36 [place] # (Auto) 0.4 10^3/uL (0.2-0.9) 08/01/22 07:36 Eos # (Auto) 0.1 10^3/uL (0.0-0.8) 08/01/22 07:36 Baso # (Auto) 0.0 10^3/uL (0.0-0.1) 08/01/22 07:36 Nucleated RBC % (auto) 0 % 08/01/22 07:36 Nucleated RBCs # 0.0 /100WBC 08/01/22 07:36 Sodium 136 mmol/L (136-145) 08/01/22 07:36 Potassium 3.5 mmol/L (3.5-5.1) 08/01/22 07:36 Chloride 99 mmol/L (98-107) 08/01/22 07:36 Carbon Dioxide 24 mmol/L (22-29) 08/01/22 07:36 Anion Gap 16.5 (5-19) 08/01/22 07:36 BUN 11 mg/dL (6-20) 08/01/22 07:36 Creatinine 0.8 mg/dL (0.7-1.2) 08/01/22 07:36 GFR Calculation 118.8 mL/min (90-130) 08/01/22 07:36 Glucose 112 mg/dL (65-115) 08/01/22 07:36 Calculated Osmolality 282 mOsm/kg (285-295) L 08/01/22 07:36 Calcium 9.2 mg/dL (8.5-10.5) 08/01/22 07:36 Total Bilirubin 0.7 mg/dL (0.15-1.2) 08/01/22 07:36 AST 16 U/L (0-40) 08/01/22 07:36 ALT 20 U/L (0-41) 08/01/22 07:36 Alkaline Phosphatase 81 U/L (40-130) 08/01/22 07:36 Total Protein 7.2 g/dL (6.6-8.7) 08/01/22 07:36 Albumin 4.5 g/dL (3.5-5.2) 08/01/22 07:36 Globulin 2.7 g/dL (1.3-4.6) 08/01/22 07:36 Lipase 16 U/L (13-60) 08/01/22 07:36 Urine Color Yellow (Yellow) 08/01/22 07:46 Urine Appearance Clear (CLEAR) 08/01/22 07:46 Urine pH 6 (5-7) 08/01/22 07:46 Ur Specific [place] 1.025 (1.005-1.030) 08/01/22 07:46 Urine Protein Neg (Negative) 08/01/22 07:46 Urine Glucose (UA) Norm (Normal) 08/01/22 07:46 Urine Ketones 1+ (Negative) H 08/01/22 07:46 Urine Blood Neg (Negative) 08/01/22 07:46 Urine Nitrate Negative (Negative) 08/01/22 07:46 Urine Bilirubin Neg (Negative) 08/01/22 07:46 Urine Urobilinogen 1 mg/dL (Negative) H 08/01/22 07:46 Ur Leukocyte Esterase Negative (Negative) 08/01/22 07:46 Discharge Plan Discharge Patient Disposition: Home Clinical Impression: Migraine headache Qualifiers: Migraine type: without aura Status migrainosus presence: without status migrainosus Intractability: not intractable Qualified Code(s): G43.009 - Migraine without aura, not intractable, without status migrainosus Condition: Stable Prescriptions: No Action buspirone 10 mg tablet 10 mg PO BID trazodone 50 mg tablet 50 mg PO DAILY ondansetron 8 mg tablet,disintegrating 8 mg PO Q8H PRN (Reason: nausea and vomiting) 5 Days Qty: 15 0RF ibuprofen 600 mg tablet 600 mg PO Q8H PRN (Reason: pain) Qty: 60 0RF ondansetron 4 mg tablet,disintegrating 4 mg PO Q8H PRN (Reason: nausea and vomiting) Qty: 20 0RF Vistaril 50 mg capsule 50 mg PO Q8H PRN (Reason: acute anxiety) Qty: 30 0RF oxycodone 5 mg tablet 5 mg PO Q4H PRN (Reason: pain) Qty: 10 0RF Discharge Orders: Discharge ED (Routine); Ordered 08/01/22 Ordered By: Marito Hunter Referrals: Nadja Nance PA [Primary Care Provider] - Discharge Diet: Regular Discharge Activity: Increase activity as tolerated Patient Instructions: Migraine Headache (ED) Activity Restrictions/Additional Instructions: Follow-up with medical provider as directed. Continue taking all home medications as previously prescribed. Return to the ER or your medical provider if condition worsens. Please read and understand discharge instructions. Thank you for choosing [facility] [place] for your healthcare needs today. Please realize this is an emergency room and that we are providing you with a medical screening exam and this may not be complete and all inclusive of all the testing and or work up that you may need to determine your ailment or severity of your illness. It is very important that you follow up as instructed or that you return to the Emergency Department should you have concerns or if your condition changes or worsens in any way. Stand Alone Forms: Work/School Release Coding Level of Care Code ED Rn Internal Medicine for Violet Villalobos
[2022-08-01 07:51] LABS: Add Urine Microscopic? NO; Charge for UA Resulting for Rev
[2022-08-01] MEDS: diphenhydrAMINE 50 mg/mL SDV 1mL 25 MG IVP (07:58)
[2022-08-01] MEDS: dexamethasone 10 mg/mL INJ IVP (07:59)
[2022-08-01] MEDS: SUMAtriptan 6 mg/0.5 mL SDV SUBCUT (07:59)
[2022-08-01 08:02] LABS: Alanine Aminotransferase 20 U/L (0-41); Albumin Level 4.5 g/dL (3.5-5.2); Alkaline Phosphatase 81 U/L (40-130); Anion Gap 16.5 (5-19); Aspartate Amino Transferase 16 U/L (0-40); Blood Urea Nitrogen 11 mg/dL (6-20); Calcium 9.2 mg/dL (8.5-10.5); Carbon Dioxide 24 mmol/L (22-29); Chloride 99 mmol/L (98-107); Globulin 2.7 g/dL (1.3-4.6); Glomerular Filtration Rate 118.8 mL/min (90-130); Glucose 112 mg/dL (65-115); Lipase 16 U/L (13-60); Osmolality Calculated 282 mOsm/kg (285-295); Potassium 3.5 mmol/L (3.5-5.1); Sodium 136 mmol/L (136-145); Total Bilirubin 0.7 mg/dL (0.15-1.2); Total Protein 7.2 g/dL (6.6-8.7)
[2022-08-01 08:03] LABS: Bilirubin Urine Neg (Negative); Blood Urine Neg (Negative); Glucose Urine UA Norm (Normal); Ketones Urine 1+ (Negative); Leukocyte Esterase Urine Negative (Negative); Nitrate Urine Negative (Negative); Protein Urine Neg (Negative); Specific Gravity, Urine 1.025 (1.005-1.030); Urine Appearance Clear (CLEAR); Urine Color Yellow (Yellow); Urobilinogen Urine 1 mg/dL (Negative); pH Urine 6 (5-7)
[2022-08-01 08:09] VITALS: BP 146/89; PULSE 74; RESP 18; O2SAT 98
[2022-08-01 08:50] VITALS: BP 137/72; PULSE 76; RESP 18; O2SAT 100
== END 2022-08-01 08:51 | disposition home or self-care (01) ==
PROVIDERS: Emergency Provider Physician Assistant; PCP Physician Assistant
DX: G43.009 Migraine without aura, not intractable, without status migrainosus (principal); F17.210 Nicotine dependence, cigarettes, uncomplicated
CPT/HCPCS: 70450; 80053; 81003; 83690; 85025; 96361; 96372; 96374; 96375; 99284; J1100; J1200; J2405; J3030; J7030

== ENCOUNTER 2022-09-08 09:05 | Emergency (ER) | payer OTHER, SELFPAY ==
[2022-09-08 09:13] VITALS: BP 145/102; PULSE 100; RESP 18; TEMP 36.7; O2SAT 96; BMI 29.6
--- NOTE | 2022-09-08 09:16 | XRR_ITS ---
PROCEDURE INFORMATION: Exam: XR Chest Exam date and time: 09/08/2022 9:41 AM Age: 22 years old Clinical indication: Cough and dyspnea; Additional info: Dyspnea/cough TECHNIQUE: Imaging protocol: Radiologic exam of the chest. Views: 1 view. COMPARISON: CR XR chest 1V portable [id number] 10/06/2021 9:50 AM FINDINGS: Lungs: Unremarkable. No consolidation. Pleural spaces: Unremarkable. No pleural effusion. No pneumothorax. Heart/Mediastinum: Unremarkable. No cardiomegaly. Bones/joints: Unremarkable. No interval changes are seen comparing to prior examination XR/XR chest 1V portable [id number] IMPRESSION: No acute findings.
--- NOTE | 2022-09-08 09:34 | W.ED.ANXIETY ---
HPI - Anxiety General: Chief Complaint: Anxiety Stated Complaint: Amandeep RUSSELL Time Seen by Provider: 09/08/22 09:16 Source: patient Mode of arrival: ambulatory History of Present Illness: 22-year-old male presents emergency room with complaints of anxiety. He is having some shortness of breath and minimally productive cough. He mentions anxiety may be producing some of it. He is a regular smoker he recently began going through divorce proceedings and is evidently moving back to [place] tomorrow. Denies any fever sweats or chills. He mentioned to the nurse he thinks about suicide sometimes when asked specifically about it he says for the last couple of years whenever he drinks heavily he has suicidal thoughts but has never advanced any lethality on them before he denies any suicidal thoughts at this time. MD complaint: anxiety Associated symptoms: Reports short of breath; Deny anorexia, chest pain, chills, confusion, diaphoresis, fever(s), headache(s), malaise, nausea, palpitations, syncope, vomiting or weakness Review of Systems Const: Denies: fever(s), chills, fatigue, malaise or diaphoresis ENMT: Denies: throat pain, ear or mastoid pain, nasal discharge or nasal congestion Card: Denies: chest pain, palpitations or syncope Resp: Reports: dyspnea and productive cough; Denies: non-productive cough GI: Denies: abdominal pain, nausea or vomiting : Denies: flank pain, dysuria, urinary frequency or urinary urgency Skin/Breast: Denies: rash or pruritus Neuro: Denies: headache(s) or confusion PFS ED PFSH: Medical History No pertinent family history Surgical History No pertinent past surgical history Social History Smoking and tobacco status: current every day smoker Alcohol intake: current Substance/Drug Use: current Physical Exam Const: COMMON NORMALS: no acute distress GENERAL APPEARANCE: cooperative and comfortable ORIENTATION/CONSCIOUSNESS: Yes awake, Yes oriented to person, Yes oriented to place and Yes oriented to time HENMT: COMMON NORMALS: normocephalic, atraumatic and hearing grossly normal bilaterally HEAD & SCALP: normocephalic and atraumatic Resp: COMMON NORMALS: normal respiratory effort, No retractions, No use of accessory muscles and clear to auscultation bilaterally AUSCULTATION: clear to auscultation bilaterally Cardio: COMMON NORMALS: regular rate, regular rhythm and No murmurs present (Cardio) RATE: regular rate RHYTHM: regular rhythm GI: COMMON NORMALS: Soft to palpation and No hepatosplenomegaly present AUSCULTATION: Yes normoactive bowel sounds PALPATION: Yes Soft to palpation, No Tenderness to palpation present (GI), No Guarding due to palpation present (GI) and Yes No hepatosplenomegaly present Extremity: COMMON NORMALS: normal to inspection, capillary refill normal, no clubbing, cyanosis or edema, no calf tenderness and no pedal edema Neuro: SENSORIUM/ORIENTATION: Yes oriented to person, Yes oriented to place and Yes oriented to time Skin: COMMON NORMALS: no rashes or lesions noted GENERAL SKIN EXAM: no rashes or lesions noted Course Vital Signs: Vital signs: Vital Signs Temperature 98.0 F 09/08/22 09:13 Pulse Rate 100 09/08/22 09:13 Respiratory Rate 18 09/08/22 09:13 Blood Pressure 145/102 09/08/22 09:13 Pulse Oximetry 96 09/08/22 09:13 Oxygen Delivery Me thod Room Air 09/08/22 09:13 MDM - Anxiety Medical Decision Making Chest x-ray unremarkable. Patient is having productive cough would start him on doxycycline and albuterol. He is not wheezing that monitor him and hold off on steroids as I think that may exacerbate his anxiety issues. Encouraged him to follow-up at the crisis intervention or [facility] if he has further problems. As to his mentions about suicidality. This been ongoing issue it only occurs when he drinks he is not advance lethality discussed Dr. Quiroz who is on-call. Patient is saying he does not feel suicidal at this time Dr. Vergara does not feel that admission to [facility] regarding this would be helpful for the patient. Medical Records I reviewed the patient's medical records. Lab Data I reviewed the patient's lab results. 09/08/22 09:53 09/08/22 09:53 Radiology Impressions Chest X-Ray 09/08/22 09:16 IMPRESSION: No acute findings. Laboratory Results WBC 7.4 10^3/uL (4.0-10.0) 09/08/22 09:53 RBC 5.83 10^6/uL (4.1-5.3) H 09/08/22 09:53 Hgb 19.0 g/dL (11.7-16.6) H 09/08/22 09:53 Hct 54.4 % (42.0-52.0) H 09/08/22 09:53 MCV 93.3 fl (80-94) 09/08/22 09:53 MCH 32.6 pg (28.0-34.0) 09/08/22 09:53 MCHC 34.9 g/dL (30.0-36.0) 09/08/22 09:53 RDW 12.8 % (12.1-15.1) 09/08/22 09:53 Plt Count 209 10^3/cmm (130-400) 09/08/22 09:53 MPV 9.7 fL (7.4-10.4) 09/08/22 09:53 Neut % (Auto) 63.4 % 09/08/22 09:53 Lymph % (Auto) 24.5 % 09/08/22 09:53 [place] % (Auto) 9.5 % 09/08/22 09:53 Eos % (Auto) 1.5 % 09/08/22 09:53 Baso % (Auto) 1.0 % 09/08/22 09:53 Neut # (Auto) 4.67 10^3/uL (1.8-7.7) 09/08/22 09:53 Lymph # (Auto) 1.8 10^3/uL (0.8-4.8) 09/08/22 09:53 [place] # (Auto) 0.7 10^3/uL (0.2-0.9) 09/08/22 09:53 Eos # (Auto) 0.1 10^3/uL (0.0-0.8) 09/08/22 09:53 Baso # (Auto) 0.1 10^3/uL (0.0-0.1) 09/08/22 09:53 Nucleated RBC % (auto) 0 % 09/08/22 09:53 Nucleated RBCs # 0.0 /100WBC 09/08/22 09:53 Sodium 140 mmol/L (136-145) 09/08/22 09:53 Potassium 4.0 mmol/L (3.5-5.1) 09/08/22 09:53 Chloride 103 mmol/L (98-107) 09/08/22 09:53 Carbon Dioxide 27 mmol/L (22-29) 09/08/22 09:53 Anion Gap 14.0 (5-19) 09/08/22 09:53 BUN 7 mg/dL (6-20) 09/08/22 09:53 Creatinine 0.8 mg/dL (0.7-1.2) 09/08/22 09:53 GFR Calculation 118.8 mL/min (90-130) 09/08/22 09:53 Glucose 83 mg/dL (65-115) 09/08/22 09:53 Calculated Osmolality 287 mOsm/kg (285-295) 09/08/22 09:53 Calcium 9.5 mg/dL (8.5-10.5) 09/08/22 09:53 Total Bilirubin 0.8 mg/dL (0.15-1.2) 09/08/22 09:53 AST 18 U/L (0-40) 09/08/22 09:53 ALT 23 U/L (0-41) 09/08/22 09:53 Alkaline Phosphatase 90 U/L (40-130) 09/08/22 09:53 Total Protein 7.3 g/dL (6.6-8.7) 09/08/22 09:53 Albumin 4.8 g/dL (3.5-5.2) 09/08/22 09:53 Globulin 2.5 g/dL (1.3-4.6) 09/08/22 09:53 Discharge Plan Discharge Patient Disposition: Home Clinical Impression: Bronchitis Condition: Stable Prescriptions: New doxycycline hyclate 100 mg capsule 100 mg PO BID 10 Days Qty: 20 0RF albuterol sulfate 90 mcg/actuation HFA aerosol inhaler 2 inh INHALATION Q4H PRN (Reason: shortness of breath or wheezing) Qty: 18 0RF No Action buspirone 10 mg tablet 10 mg PO BID trazodone 50 mg tablet 50 mg PO BEDTIME ibuprofen 600 mg tablet 600 mg PO Q8H PRN (Reason: pain) Qty: 60 0RF paroxetine HCl 20 mg tablet 20 mg PO BEDTIME Ativan 1 mg Tablet 1 mg PO TID PRN (Reason: Anxiety) albuterol sulfate 90 mcg/actuation HFA aerosol inhaler 2 puff INHALATION QID PRN (Reason: Shortness Of Breath) Discharge Orders: Discharge ED (Routine); Ordered 09/08/22 Ordered By: Zelalem Salcedo Referrals: Nadja Nance PA [Primary Care Provider] - Discharge Diet: Usual diet Discharge Activity: Increase activity as tolerated Patient Instructions: Opioid Safety, Pain Management Activity Restrictions/Additional Instructions: You were seen today for bronchitis with a productive cough and shortness of breath. Recommend to start doxycycline use albuterol as needed follow-up with your doctor if not improving in the next 5 to 7 days Stand Alone Forms: Work/School Release Coding Level of Care Code ED Lotus Notes Administrator for Violet Villalobos
--- NOTE | 2022-09-08 09:54 | PC.PHAR ---
pt states he takes care of his own medications-pt states he has ativan 1mg tid prn pt states he has from [place] doesnt remember where he filled it at ext doesnt show filled per pt kymberly melendez knows he has ativan but cant write for it per pt-
[2022-09-08 10:06] LABS: Basophils # 0.1 10^3/uL (0.0-0.1); Eosinophils # 0.1 10^3/uL (0.0-0.8); Eosinophils % 1.5 %; Hematocrit 54.4 % (42.0-52.0); Lymphocytes # 1.8 10^3/uL (0.8-4.8); Lymphocytes % 24.5 %; Mean Corpuscular HGB Conc 34.9 g/dL (30.0-36.0); Mean Corpuscular Hemoglobin 32.6 pg (28.0-34.0); Mean Corpuscular Volume 93.3 fl (80-94); Mean Platelet Volume 9.7 fL (7.4-10.4); Monocytes # 0.7 10^3/uL (0.2-0.9); Monocytes % 9.5 %; Neutrophils # 4.67 10^3/uL (1.8-7.7); Neutrophils % 63.4 %; Nucleated Red Blood Cells % 0 %; Platelet Count 209 10^3/cmm (130-400); Red Blood Count 5.83 10^6/uL (4.1-5.3); Red Cell Distribution Width 12.8 % (12.1-15.1); White Blood Count 7.4 10^3/uL (4.0-10.0)
[2022-09-08 10:23] LABS: Alanine Aminotransferase 23 U/L (0-41); Albumin Level 4.8 g/dL (3.5-5.2); Alkaline Phosphatase 90 U/L (40-130); Aspartate Amino Transferase 18 U/L (0-40); Blood Urea Nitrogen 7 mg/dL (6-20); Calcium 9.5 mg/dL (8.5-10.5); Carbon Dioxide 27 mmol/L (22-29); Chloride 103 mmol/L (98-107); Globulin 2.5 g/dL (1.3-4.6); Glomerular Filtration Rate 118.8 mL/min (90-130); Glucose 83 mg/dL (65-115); Osmolality Calculated 287 mOsm/kg (285-295); Sodium 140 mmol/L (136-145); Total Bilirubin 0.8 mg/dL (0.15-1.2); Total Protein 7.3 g/dL (6.6-8.7)
== END 2022-09-08 10:44 | disposition home or self-care (01) ==
PROVIDERS: Emergency Provider Family Medicine; PCP Physician Assistant
DX: J40 Bronchitis, not specified as acute or chronic (principal); F17.210 Nicotine dependence, cigarettes, uncomplicated
CPT/HCPCS: 71045; 80053; 85025; 99284

== ENCOUNTER 2022-10-14 14:11 | Emergency (ER) | payer OTHER, SELFPAY ==
[2022-10-14 14:59] VITALS: BP 125/83; PULSE 78; RESP 16; TEMP 36.5; O2SAT 98; BMI 24.9
--- NOTE | 2022-10-14 17:09 | ED_ITS ---
HPI - Skin/Abscess/Foreign Bdy General: Chief complaint: Skin/Abscess/Foreign Body Stated complaint: skin rash on forehead Time Seen by Provider: 10/14/22 17:07 History of Present Illness: 22-year-old male patient comes in today for complaints of crusted lesions along the forehead. Patient reports noticing the lesions starting about 1 week ago became concerned as they are starting to spread. Patient has had impetigo in the past and it reminds him of previous eruptions. Review of Systems General: Reports: 10 or more systems reviewed and unremarkable except in HPI and below Skin/Breast: Reports: new lesions PFSH ED PFSH: Medical History No pertinent family history Surgical History No pertinent past surgical history Social History Smoking and tobacco status: current every day smoker Alcohol intake: current Substance/Drug Use: current Physical Exam Const: COMMON NORMALS: alert HENMT: COMMON NORMALS: normocephalic HEAD & SCALP: normocephalic and other (Crusted lesions to scalp and forehead) Neck/C-Spine: COMMON NORMALS: full ROM Resp: COMMON NORMALS: normal respiratory effort Cardio: COMMON NORMALS: regular rate RATE: regular rate Extremity: COMMON NORMALS: normal to inspection Neuro: SENSORIUM/ORIENTATION: Yes alert Skin: LESIONS: lesion noted (Scalp and forehead) Course Vital Signs: Vital signs: Vital Signs Temperature 97.7 F 10/14/22 14:59 Pulse Rate 78 10/14/22 14:59 Respiratory Rate 16 10/14/22 14:59 Blood Pressure 125/83 10/14/22 14:59 Pulse Oximetry 98 10/14/22 14:59 Oxygen Delivery Me thod Room Air 10/14/22 14:59 MDM - Skin/Abscess/Foreign Bdy Medicial Decision Making 22-year-old male patient comes in today with crusted lesions to the scalp and forehead. On exam we note honey crusted lesions to the scalp and the forehead of individual. Minimal redness is noted to the lesions. Differential diagnosis includes impetigo/folliculitis, contact dermatitis, support dermatitis. We will go ahead and treat for impetigo with recommendations for cleaning and good hygiene. Patient reported understanding of care plan and need for follow-up or return to the ER. Discharge Plan Discharge Patient Disposition: Home Clinical Impression: Impetigo Condition: Stable Prescriptions: New amoxicillin-pot clavulanate 875-125 mg tablet 1 tab PO BID Qty: 14 0RF mupirocin 2 % ointment 1 applic topical BID Qty: 22 0RF No Action buspirone 10 mg tablet 10 mg PO BID trazodone 50 mg tablet 50 mg PO BEDTIME ibuprofen 600 mg tablet 600 mg PO Q8H PRN (Reason: pain) Qty: 60 0RF paroxetine HCl 20 mg tablet 20 mg PO BEDTIME Ativan 1 mg Tablet 1 mg PO TID PRN (Reason: Anxiety) albuterol sulfate 90 mcg/actuation HFA aerosol inhaler 2 puff INHALATION QID PRN (Reason: Shortness Of Breath) albuterol sulfate 90 mcg/actuation HFA aerosol inhaler 2 inh INHALATION Q4H PRN (Reason: shortness of breath or wheezing) Qty: 18 0RF Discharge Orders: Discharge ED (Routine); Ordered 10/14/22 Ordered By: Willi Wilkins Referrals: Nadja Nance PA [Primary Care Provider] - Discharge Diet: Usual diet Discharge Activity: Increase activity as tolerated Patient Instructions: Impetigo (ED) Activity Restrictions/Additional Instructions: Take antibiotic 1 tablet twice a day for 7 days. Use mupirocin ointment to each of the crusted lesions or any new lesions twice a day until healed. Follow-up with primary care as needed. Return to ED for new concerns. Stand Alone Forms: Work/School Release Coding Level of Care Code ED Clinical Trials Manager for Violet Villalobos
[2022-10-14] MEDS: amoxicillin-clav 875-125 mg Tablet 1 TAB PO (17:25)
== END 2022-10-14 17:27 | disposition home or self-care (01) ==
PROVIDERS: Emergency Provider Nurse Practitioner Family; PCP Physician Assistant
DX: L01.00 Impetigo, unspecified (principal); F17.210 Nicotine dependence, cigarettes, uncomplicated
CPT/HCPCS: 99283

== ENCOUNTER 2022-10-18 16:47 | Emergency (ER) | payer OTHER, SELFPAY ==
[2022-10-18 16:57] VITALS: BP 142/76; PULSE 95; RESP 17; TEMP 36.7; O2SAT 97; BMI 25.4
--- NOTE | 2022-10-18 17:16 | ECG_ITS ---
[facility] Test Date: 2022-10-18 Pat Name: Hugo Degroot Department: Room: Gender: Male Medical Assistant Float: : 2000 Requested By: Miky Garsia Order Number: [id number] Malika MD: Irais Conde M.D. Measurements Intervals Whitney Rate: 77 P: 57 NJ: 138 QRS: 95 QRSD: 99 T: 48 QT: 355 QTc: 404 Interpretive Statements SINUS RHYTHM BORDERLINE RIGHT AXIS DEVIATION [QRS AXIS > 90] LEFT VENTRICULAR HYPERTROPHY AND ST-T CHANGE [VOLTAGE CRITERIA PLUS ST/T ABNORMALITY] Compared to ECG 10/06/2021 09:33:12 Left ventricular hypertrophy now present ST (T wave) deviation now present Atrial abnormality no longer present Incomplete right bundle-branch block no longer present T-wave abnormality no longer present Possible ischemia no longer present Electronically Signed On 10-18-2022 22:55:43 CDT by Irais Conde M.D. [id number]
--- NOTE | 2022-10-18 17:26 | ED_ITS ---
HPI - Anxiety General: Chief Complaint: Anxiety Stated Complaint: anxity Time Seen by Provider: 10/18/22 17:22 History of Present Illness: 22-year-old male patient comes in today with complaints of anxiety with panic attack. Patient reports its been about 1 year since his last panic attack. Patient is on routine medications paroxetine, trazodone, and buspirone for control of his panic disorder. Patient does take lorazepam occasionally for breakthrough anxiety disorder. Patient does drink alcohol and use tobacco. Patient reports he stopped using marijuana because it increased his anxiety. Associated symptoms: Reports chest pain (Pressure) Review of Systems General: Reports: 10 or more systems reviewed and unremarkable except in HPI and below Card: Reports: chest pain (Pressure) Resp: Denies: dyspnea Psych: Reports: anxiety PFSH ED PFSH: Medical History No pertinent family history Surgical History No pertinent past surgical history Social History Smoking and tobacco status: current every day smoker Alcohol intake: current Substance/Drug Use: current Physical Exam Const: COMMON NORMALS: alert HENMT: COMMON NORMALS: normocephalic HEAD & SCALP: normocephalic Neck/C-Spine: COMMON NORMALS: full ROM Resp: COMMON NORMALS: normal respiratory effort and clear to auscultation bilaterally AUSCULTATION: clear to auscultation bilaterally Cardio: COMMON NORMALS: regular rate and regular rhythm RATE: regular rate RHYTHM: regular rhythm GI: COMMON NORMALS: Soft to palpation PALPATION: Yes Soft to palpation Extremity: COMMON NORMALS: full ROM Neuro: SENSORIUM/ORIENTATION: Yes alert Skin: COMMON NORMALS: turgor normal GENERAL SKIN EXAM: turgor normal Course Vital Signs: Vital signs: Vital Signs Temperature 98.1 F 10/18/22 16:57 Pulse Rate 88 10/18/22 17:49 Respiratory Rate 18 10/18/22 17:49 Blood Pressure 142/76 10/18/22 16:57 Pulse Oximetry 94 10/18/22 17:49 Oxygen Delivery Me thod Room Air 10/18/22 16:57 MDM - Anxiety Medical Decision Making 22-year-old male patient comes in today for complaints of increased anxiety and breakthrough panic attack. Patient reports 3 episodes of increased anxiety with chest pressure. Patient did take lorazepam prior to coming into the ER with some improvement of symptoms. On exam patient is alert and oriented. Lungs are clear to auscultation. EKG shows a sinus rhythm with a regular rate of 77 bpm. Differential diagnosis includes but not limited to panic disorder, depression or depressive disorder, suicidal homicidal ideation. Patient denies any suicidal homicidal ideation. Reviewed exam with patient with recommendations for increasing buspirone to 30 mg twice a day. Patient was also written for 10 tablets of lorazepam to use for breakthrough anxiety. Patient reported understanding of care plan and need for follow-up or return to the ER. EKG Data EKG 1: EKG interpretation date: 10/18/22 EKG interpretation time: 17:56 Prior EKG tracings: not available for review Interpretation: EKG shows sinus rhythm with a regular rate at [address] elevation or ectopy is noted. No prior exam was available for comparison. Computer generated interpretation: EKG was read as sinus rhythm, borderline right axis deviation, left ventricular hypertrophy, abnormal EKG, unconfirmed report. Discharge Plan Discharge Patient Disposition: Home Clinical Impression: Panic disorder Condition: Stable Prescriptions: New buspirone 30 mg tablet 30 mg PO BID Qty: 60 0RF lorazepam 1 mg tablet 0.5 mg PO BID PRN (Reason: anxiety) Qty: 10 0RF No Action buspirone 10 mg tablet 10 mg PO BID trazodone 50 mg tablet 50 mg PO BEDTIME ibuprofen 600 mg tablet 600 mg PO Q8H PRN (Reason: pain) Qty: 60 0RF paroxetine HCl 20 mg tablet 20 mg PO BEDTIME Ativan 1 mg Tablet 1 mg PO TID PRN (Reason: Anxiety) albuterol sulfate 90 mcg/actuation HFA aerosol inhaler 2 puff INHALATION QID PRN (Reason: Shortness Of Breath) albuterol sulfate 90 mcg/actuation HFA aerosol inhaler 2 inh INHALATION Q4H PRN (Reason: shortness of breath or wheezing) Qty: 18 0RF amoxicillin-pot clavulanate 875-125 mg tablet 1 tab PO BID Qty: 14 0RF mupirocin 2 % ointment 1 applic topical BID Qty: 22 0RF Discharge Orders: Discharge ED (Routine); Ordered 10/18/22 Ordered By: Willi Wilkins Referrals: Nadja Nance PA [Primary Care Provider] - Patient Instructions: Panic Disorder (ED) Activity Restrictions/Additional Instructions: Home and rest. Drink plenty water and fluids. Decrease caffeine and nicotine consumption as this may increase panic disorder. Take medications as prescribed . Increase buspirone to 30 mg twice a day. Continue with paroxetine and trazodone as directed. Use of lorazepam for breakthrough panic attack. Follow- up with primary care as needed. Case management will contact you with follow-up appointment with behavioral health care psychiatry services for further treatment and evaluation. Stand Alone Forms: Work/School Release Coding Level of Care Code ED Audiovisual Tech for Violet Villalobos
[2022-10-18 17:49] VITALS: PULSE 88; RESP 18; O2SAT 94
--- NOTE | 2022-10-21 10:45 | DCPLANNER ---
Addendum entered by Lian Son 10/25/22 10:21: manager utilization review received the following message from [facility] regarding referral: I attempted contact. I got a message that the wireless customer is not available. Original Note: manager utilization review had message to schedule a follow up appointment for patient with [facility]. manager utilization review sent patients information to the scheduling department at [facility]. Patients information will be printed and reviewed by Hilaria Salazar, human resources operations coordinator. Clinic will call patient with appointment information.
== END 2022-10-18 17:50 | disposition home or self-care (01) ==
PROVIDERS: Emergency Provider Nurse Practitioner Family; PCP Physician Assistant
DX: F41.0 Panic disorder [episodic paroxysmal anxiety] (principal); F17.210 Nicotine dependence, cigarettes, uncomplicated
CPT/HCPCS: 93005; 99283

== ENCOUNTER 2022-12-27 17:39 | Emergency (ER) | payer OTHER, SELFPAY ==
[2022-12-27 17:42] VITALS: PULSE 86; RESP 18; TEMP 36.8; O2SAT 100; BMI 26.1
--- NOTE | 2022-12-27 17:46 | CTR_ITS ---
PROCEDURE INFORMATION: Exam: CT Cervical Spine Without Contrast Exam date and time: 12/27/2022 5:56 PM Age: 22 years old Clinical indication: Injury or trauma; Concussion/head injury; Injury date: 12/27/22; Injury details: Fall from truck, pos loc, open laceration lt parietal region TECHNIQUE: Imaging protocol: Computed tomography of the cervical spine without contrast. Radiation optimization: All CT scans at this facility use at least one of these dose optimization techniques: automated exposure control; mA and/or kV adjustment per patient size (includes targeted exams where dose is matched to clinical indication); or iterative reconstruction. REPORTING DATA: Count of CT and Cardiac NM exams in prior 12 months: This patient has received [address] and 0 known cardiac nuclear medicine studies in the 12 months prior to the current study. COMPARISON: CT head wo con* [id number] 12/27/2022 5:51 PM RADIATION DOSE METRICS: Total DLP (mGy-cm): 145.87 FINDINGS: Bones/joints: Cervical vertebra maintain their height. There is no fracture of the posterior elements. There is slight reversal cervical curvature. Alignment is otherwise normal. There is a left paracentral osteophyte and disc protrusion at C4-C5 resulting in moderate central stenosis . There is a right paracentral osteophyte and disc protrusion at C5-C6 moderately narrowing the spinal canal to the right of midline. Mild to moderate left foraminal stenosis at C5-C6. Lungs: Lung apices are normal. Soft tissues: Unremarkable. CT/CT cervical spin wo con* [id number] IMPRESSION: 1. No fracture of the cervical spine. 2. Left paracentral osteophyte and disc protrusion at C4-C5 and right paracentral osteophyte and disc protrusion at C5-C6 moderately narrowing the spinal canal.
--- NOTE | 2022-12-27 17:46 | CTR_ITS ---
PROCEDURE INFORMATION: Exam: CT Head Without Contrast Exam date and time: 12/27/2022 5:51 PM Age: 22 years old Clinical indication: Injury or trauma; Wound, open; With loss of consciousness; Not specified; Scalp; Injury date: 12/27/22; Injury details: Fall from truck, pos loc, open laceration lt parietal region TECHNIQUE: Imaging protocol: Computed tomography of the head without contrast. Radiation optimization: All CT scans at this facility use at least one of these dose optimization techniques: automated exposure control; mA and/or kV adjustment per patient size (includes targeted exams where dose is matched to clinical indication); or iterative reconstruction. REPORTING DATA: Count of CT and Cardiac NM exams in prior 12 months: This patient has received [address] and 0 known cardiac nuclear medicine studies in the 12 months prior to the current study. COMPARISON: CT head wo con* [id number] 08/01/2022 7:50 AM RADIATION DOSE METRICS: Total DLP (mGy-cm): 1121.98 FINDINGS: Brain: No evidence of infarct. As best seen on series 6 images 45 to 51, small amount of pneumocephalus and extra-axial hematoma in the left parietal region at site of fracture. This is a small hematoma extending over a length of 11 mm with maximal thickness of 2 mm.. It is probably epidural as it is located between the calvarial fragment in the non fractured calvarium. No parenchymal hemorrhage. No subarachnoid hemorrhage. No midline shift. Cerebral ventricles: There is no hydrocephalus. No intraventricular hemorrhage. Paranasal sinuses: Visualized sinuses are unremarkable. No fluid levels. Mastoid air cells: Visualized mastoid air cells are well aerated. Bones/joints: There is a left parietal comminuted calvarial fracture with up to 8 mm of depression. Soft tissues: Left parietal scalp hematoma and laceration CT/CT head wo con* [id number] IMPRESSION: 1. Comminuted left parietal fracture with up to 8 mm. 2. Small extra-axial hematoma, probably epidural measuring up to 2 mm in thickness between fracture fragment and intact calvarium. Small amount of pneumocephalus at fracture site.
--- NOTE | 2022-12-27 17:59 | W.ED.FALL ---
HPI - Fall General: Chief Complaint: Fall Stated Complaint: Fall Time Seen by Provider: 12/27/22 17:46 Source: patient and EMS Mode of arrival: EMS Limitations: no limitations History of Present Illness: 22-year-old male who states that he is on a trailer and then on the back of a truck that was on a trailer and fell roughly 6 feet off of the truck onto gravel. States he hit his posterior head he did have a brief period of loss of consciousness has a laceration to his posterior scalp. He is complaining of some neck pain but states he has chronic neck pain denies any other injuries rates his pain a 3 out of 10 currently he has had no vomiting no diarrhea. Associated symptoms-after fall: Reports headache(s) and neck pain; Denies abdominal pain or chest pain Review of Systems Const: Denies: fever(s), chills or body aches Eyes: Denies: blurry vision or eye discomfort ENMT: Denies: throat pain or dental pain Card: Denies: chest pain Resp: Denies: dyspnea GI: Denies: abdominal pain, nausea, vomiting or diarrhea Musc: Reports: neck pain; Denies: back pain Skin/Breast: Denies: rash Neuro: Reports: headache(s) PFSH ED PFSH: Medical History No pertinent family history Surgical History No pertinent past surgical history Social History Smoking and tobacco/nicotine status: current every day tobacco/nicotine user Alcohol intake: current Substance/Drug Use: current Physical Exam Const: COMMON NORMALS: patient oriented x3 HENMT: COMMON NORMALS: normocephalic HEAD & SCALP: normocephalic OTHER: 4 cm laceration to posterior scalp Eye: COMMON NORMALS: Equal, round and reactive pupils present and EOMs intact bilaterally PUPIL: Yes Equal, round and reactive pupils present Neck/C-Spine: OTHER: in c collar Chest: COMMONS NORMALS: normal inspection of the chest and normal palpation of entire chest wall Resp: COMMON NORMALS: normal respiratory effort, No retractions, No use of accessory muscles and clear to auscultation bilaterally AUSCULTATION: clear to auscultation bilaterally Cardio: COMMON NORMALS: regular rate, regular rhythm and No murmurs present (Cardio) RATE: regular rate RHYTHM: regular rhythm GI: COMMON NORMALS: Normal to inspection, nondistended, normoactive bowel sounds present, Soft to palpation, non-tender and no masses PALPATION: Yes Soft to palpation Extremity: COMMON NORMALS: normal to inspection and full ROM Neuro: COMMON NORMALS: patient oriented x3, moves all extremities and no focal motor deficits Psych: COMMON NORMALS: mental status grossly normal, Normal thought process present and cooperative THOUGHT PROCESS: Normal thought process present Skin: COMMON NORMALS: no rashes or lesions noted and no wounds GENERAL SKIN EXAM: no rashes or lesions noted Procedures Laceration Laceration 1: Site: scalp Size (cm): 4 Description: linear Depth: simple, single layer Local Anesthetic: lidocaine 1% Amount of anesthesia used (mL): 8 Pre-repair: irrigated extensively Skin layer closed with: other (sheryl) Number of sutures: 7 Course Vital Signs: Vital signs: Vital Signs Temperature 98.2 F 12/27/22 17:42 Pulse Rate 86 12/27/22 17:42 Respiratory Rate 18 12/27/22 17:42 Pulse Oximetry 100 12/27/22 17:42 Oxygen Delivery Me thod Room Air 12/27/22 17:42 MDM - Fall Medical Decision Making Patient presents here after he fall CT does show skull fracture with a possible epidural abscess of spoke to [facility] will transfer their ER to ER for higher level of care for neurosurgery. Medical Records I reviewed the patient's medical records. Lab Data I reviewed the patient's lab results. Radiology Impressions Cervical Spine CT 12/27/22 17:46 IMPRESSION: 1. No fracture of the cervical spine. 2. Left paracentral osteophyte and disc protrusion at C4-C5 and right paracentral osteophyte and disc protrusion at C5-C6 moderately narrowing the spinal canal. Head CT 12/27/22 17:46 IMPRESSION: 1. Comminuted left parietal fracture with up to 8 mm. 2. Small extra-axial hematoma, probably epidural measuring up to 2 mm in thickness between fracture fragment and intact calvarium. Small amount of pneumocephalus at fracture site. ADDENDUM: 12/27/22 9624 THIS REPORT CONTAINS FINDINGS THAT MAY BE CRITICAL TO PATIENT CARE. HILARIA Chapman who stated Dr Garsia has seen rpt and reports no questions at 6:39 PM CDT on 12/27/2022. All radiology interpretation(s) finalized by discharge Discharge Plan Discharge Patient Disposition: Xfer Short-Term Hosp Clinical Impression: Skull fracture Condition: Stable Prescriptions: No Action buspirone 10 mg tablet 10 mg PO BID trazodone 50 mg tablet 50 mg PO BEDTIME ibuprofen 600 mg tablet 600 mg PO Q8H PRN (Reason: pain) Qty: 60 0RF paroxetine HCl 20 mg tablet 20 mg PO BEDTIME Ativan 1 mg Tablet 1 mg PO TID PRN (Reason: Anxiety) albuterol sulfate 90 mcg/actuation HFA aerosol inhaler 2 puff INHALATION QID PRN (Reason: Shortness Of Breath) albuterol sulfate 90 mcg/actuation HFA aerosol inhaler 2 inh INHALATION Q4H PRN (Reason: shortness of breath or wheezing) Qty: 18 0RF amoxicillin-pot clavulanate 875-125 mg tablet 1 tab PO BID Qty: 14 0RF mupirocin 2 % ointment 1 applic topical BID Qty: 22 0RF buspirone 30 mg tablet 30 mg PO BID Qty: 60 0RF lorazepam 1 mg tablet 0.5 mg PO BID PRN (Reason: anxiety) Qty: 10 0RF Referrals: Nadja Nance PA [Primary Care Provider] - Coding Level of Care Code ED Tunnel Kiln Operator for Violet Villalobos
[2022-12-27] MEDS: tetanus-dipt-pertussis 0.5 mL SDV IM (18:02)
[2022-12-27] MEDS: ondansetron 2 mg/ML SDV 2 mL 4 MG IVP (18:21)
[2022-12-27] MEDS: morphine 4 mg/mL SDV 1 mL IVP (18:23)
--- NOTE | 2022-12-27 18:39 | PC.NURSE ---
ED PHYSICIAN UNABLE TO ANSWER PHONE. V RAD NEEDING TO GIVE REPORT FOR HEAD CT RESULT. V RAD INFORMED, PER DR. SORENSON, NO CONCERNS REGARDING CT RESULT AT THIS TIME.
[2022-12-27 19:01] VITALS: BP 142/87; PULSE 76; RESP 16; O2SAT 97
--- NOTE | 2022-12-27 19:01 | PC.NURSE ---
7 REENA INSERTED BY ED PHYSICIAN.
== END 2022-12-27 19:19 | disposition short-term general hospital (02) ==
PROVIDERS: Emergency Provider Emergency Medicine; PCP Physician Assistant
DX: S02.0XXA Fracture of vault of skull, initial encounter for closed fracture (principal); S01.01XA Laceration without foreign body of scalp, initial encounter; F17.210 Nicotine dependence, cigarettes, uncomplicated; W17.89XA Other fall from one level to another, initial encounter; Z23 Encounter for immunization
CPT/HCPCS: 12002; 70450; 72125; 90471; 90715; 96374; 96375; 99285; J2270; J2405

== ENCOUNTER 2023-06-27 08:01 | Emergency (ER) | payer SELFPAY ==
[2023-06-27 08:04] VITALS: BP 154/92; PULSE 75; RESP 18; TEMP 36.7; O2SAT 99; BMI 24.9
--- NOTE | 2023-06-27 08:12 | W.ED.PSYCHS ---
HPI - Psych General: Chief Complaint: Anxiety Stated Complaint: Anxiety Time Seen by Provider: 06/27/23 08:03 Source: patient Mode of arrival: ambulatory History of Present Illness: 23-year-old male presents to the emergency room with complaints of anxiety. Patient is on trazodone and BuSpar has taken lorazepam as needed. He is not able to see his primary care doctor because of some financial issues and he is out of his Ativan. He has no specific complaints of illness at this time. 2 weeks ago he said he had some stomach upset but that has resolved. MD complaint: other (Anxiety) Review of Systems Const: Denies: fever(s) or chills Card: Denies: chest pain Resp: Denies: dyspnea GI: Denies: abdominal pain : Denies: dysuria, urinary frequency or urinary urgency Musc: Denies: neck pain or back pain Skin/Breast: Denies: rash [facility] ED PFSH: Medical History No pertinent family history Surgical History No pertinent past surgical history Social History Smoking and tobacco/nicotine status: current every day tobacco/nicotine user Alcohol intake: current Substance/Drug Use: current Physical Exam Const: COMMON NORMALS: no acute distress GENERAL APPEARANCE: cooperative and comfortable ORIENTATION/CONSCIOUSNESS: Yes awake, Yes oriented to person, Yes oriented to place and Yes oriented to time HENMT: COMMON NORMALS: normocephalic, atraumatic and hearing grossly normal bilaterally HEAD & SCALP: normocephalic and atraumatic Resp: COMMON NORMALS: normal respiratory effort, No retractions, No use of accessory muscles and clear to auscultation bilaterally AUSCULTATION: clear to auscultation bilaterally Cardio: COMMON NORMALS: regular rate, regular rhythm and No murmurs present (Cardio) RATE: regular rate RHYTHM: regular rhythm GI: COMMON NORMALS: Soft to palpation and No hepatosplenomegaly present AUSCULTATION: Yes normoactive bowel sounds PALPATION: Yes Soft to palpation, No Tenderness to palpation present (GI), No Guarding due to palpation present (GI) and Yes No hepatosplenomegaly present Extremity: COMMON NORMALS: normal to inspection, capillary refill normal, no clubbing, cyanosis or edema, no calf tenderness and no pedal edema Neuro: SENSORIUM/ORIENTATION: Yes oriented to person, Yes oriented to place and Yes oriented to time Skin: COMMON NORMALS: no rashes or lesions noted GENERAL SKIN EXAM: no rashes or lesions noted Course Vital Signs: Vital signs: Vital Signs Temperature 98.1 F 06/27/23 08:04 Pulse Rate 75 06/27/23 08:04 Respiratory Rate 18 06/27/23 08:17 Blood Pressure 136/79 06/27/23 09:12 Pulse Oximetry 100 06/27/23 08:17 Oxygen Delivery Me thod Room Air 06/27/23 08:17 MDM - Psych Medical Decision Making Anxiety no emergent conditions EKG shows early repull. Patient is not having any symptoms at this time. Will discharge patient home with hydroxyzine to use as needed encouraged him to follow-up with his primary care doctor Medical Records I reviewed the patient's medical records. Lab Data I reviewed the patient's lab results. No radiology studies performed this visit Discharge Plan Discharge Patient Disposition: Home Clinical Impression: Acute anxiety Condition: Stable Prescriptions: New hydroxyzine HCl 25 mg tablet 25 mg PO Q6H PRN (Reason: anxiety) Qty: 14 0RF No Action buspirone 10 mg tablet 10 mg PO BID trazodone 50 mg tablet 50 mg PO BEDTIME ibuprofen 600 mg tablet 600 mg PO Q8H PRN (Reason: pain) Qty: 60 0RF paroxetine HCl 20 mg tablet 20 mg PO BEDTIME Ativan 1 mg Tablet 1 mg PO TID PRN (Reason: Anxiety) albuterol sulfate 90 mcg/actuation HFA aerosol inhaler 2 inh INHALATION Q4H PRN (Reason: shortness of breath or wheezing) Qty: 18 0RF amoxicillin-pot clavulanate 875-125 mg tablet 1 tab PO BID Qty: 14 0RF mupirocin 2 % ointment 1 applic topical BID Qty: 22 0RF buspirone 30 mg tablet 30 mg PO BID Qty: 60 0RF lorazepam 1 mg tablet 0.5 mg PO BID PRN (Reason: anxiety) Qty: 10 0RF Discharge Orders: Discharge ED (Routine); Ordered 06/27/23 Ordered By: Zelalem Salcedo Referrals: Nadja Nance PA [Primary Care Provider] - Discharge Diet: Usual diet Discharge Activity: Increase activity as tolerated Patient Instructions: Opioid Safety, Pain Management Activity Restrictions/Additional Instructions: Thank you for choosing [facility] for your healthcare needs today. Please realize this is an emergency room and that we are providing you with a medical screening exam and this may not be complete and all inclusive of all the testing and or work up that you may need to determine your ailment or severity of your illness. It is very important that you follow up as instructed or that you return to the Emergency Department should you have concerns or if your condition changes or worsens in any way. You were seen today for anxiety. You are given hydroxyzine to use 1 every 6 hours as needed. Follow-up with your primary care doctor for further treatment options. Coding Level of Care Code ED Showplace Manager for Violet Villalobos
[2023-06-27 08:17] VITALS: BP 154/92; RESP 18; O2SAT 100
[2023-06-27] MEDS: LORazepam 2 mg Tablet PO (08:17)
--- NOTE | 2023-06-27 08:28 | ECG_ITS ---
[facility] Test Date: 2023-06-27 Pat Name: Hugo Degroot Department: Room: Gender: Male Cnc Applications Engineer: : 2000 Requested By: Zelalem Mcdaniel Order Number: [id number] Malika MD: Rogers Vogel M.D. Measurements Intervals [place] Rate: 69 P: 68 UT: 168 QRS: 91 QRSD: 97 T: 61 QT: 350 QTc: 377 Interpretive Statements SINUS RHYTHM POSSIBLE LEFT ATRIAL ENLARGEMENT [-0.1mV P-WAVE IN V1/V2] BORDERLINE RIGHT AXIS DEVIATION [QRS AXIS > 90] INCOMPLETE RIGHT BUNDLE BRANCH BLOCK [90+ ms QRS DURATION, TERMINAL R IN V1/V2, 40+ ms S IN I/aVL/V4/V5/V6] ST ELEVATION, PROBABLY EARLY REPOLARIZATION [ST ELEVATION WITH NORMALLY INFLECTED T-WAVE] NONSPECIFIC T-WAVE ABNORMALITY Compared to ECG 10/18/2022 17:22:52 Incomplete right bundle-branch block now present Early repolarization now present T-wave abnormality now present Left ventricular hypertrophy no longer present ST (T wave) deviation still present Electronically Signed On 06-27-2023 17:01:42 CDT by Rogers Vogel M.D. [id number]
[2023-06-27 09:12] VITALS: BP 136/79
== END 2023-06-27 09:34 | disposition home or self-care (01) ==
PROVIDERS: Emergency Provider Family Medicine; PCP Physician Assistant
DX: F41.9 Anxiety disorder, unspecified (principal); Z72.0 Tobacco use
CPT/HCPCS: 93005; 99283

== ENCOUNTER 2023-07-29 15:52 | Emergency (ER) | payer SELFPAY ==
[2023-07-29 15:55] VITALS: BP 107/64; PULSE 85; RESP 18; TEMP 36.6; O2SAT 98; BMI 23.7
--- NOTE | 2023-07-29 16:26 | ECG_ITS ---
[facility] Test Date: 2023-07-29 Pat Name: Hugo Degroot Department: Room: Gender: Male Feeder Catcher: : 2000 Requested By: Miky Garsia Order Number: [id number] Malika MD: Rogers Vogel M.D. Measurements Intervals [place] Rate: 70 P: 62 [place]: 166 QRS: 87 QRSD: 97 T: 52 QT: 365 QTc: 394 Interpretive Statements SINUS RHYTHM LEFT ATRIAL ENLARGEMENT [-0.15mV P-WAVE IN V1/V2] POSSIBLE RIGHT VENTRICULAR CONDUCTION DELAY [RSR (QR) IN V1/V2] ST DEVIATION AND MODERATE T-WAVE ABNORMALITY, CONSIDER ANTERIOR ISCHEMIA [-0.1+ mV T-WAVE IN V3/V4] Compared to ECG 06/27/2023 08:28:58 Possible ischemia now present Incomplete right bundle-branch block no longer present ST (T wave) deviation no longer present Early repolarization no longer present T-wave abnormality still present Electronically Signed On 07-30-2023 16:25:57 CDT by Rogers Vogel M.D. [id number]
--- NOTE | 2023-07-29 17:27 | ED_ITS ---
Documented by User: MICHELLE Vaca 07/29/23 20:20 HPI - Dizziness 2 General: Chief Complaint: Dizziness Stated Complaint: dizzy Time Seen by Provider: 07/29/23 16:54 Source: patient Mode of arrival: ambulatory Limitations: no limitations History of Present Illness: HPI Narrative: Patient is a 23-year-old male presenting to the emergency department complaining of dizziness and lightheadedness onset today. Patient notes that he stopped taking his SSRI 3 days ago due to not being able to get refills from primary care provider at [facility]. He notes that he has been increasingly anxious and depressed, and today noticed when he first stood up in the morning that he felt unbalanced on his feet. He notes that the symptoms are improved with lying supine, specifically exacerbated with standing up. He also notes he has not been taking his Ativan as needed due to not being able to get this refilled. He denies any spells of syncope, palpitations, chest pain, breathing difficulties, nausea or vomiting, or other symptoms at this time. He has no pertinent past medical history to report other than a moderately significant psychiatric history. He notes he was taking paroxetine 20 mg every day for the past couple of years prior to stopping. MD elicited complaint: dizziness and lightheadedness Onset (ago): hour(s) Timing: sudden onset Severity: moderate Description: lightheadedness and off-balance Context: other (Stopped taking SSRI 3-4 days ago) History of similar symptoms: No Exacerbating factors: change in body position Relieving factors: lying down Associated symptoms: Denies chest pain, chills, headache(s), nausea, palpitations or vomiting Associated neuro symptoms: Deny numbness in extremities Review of Systems 2 General: Reports: 10 or more systems reviewed and unremarkable except in HPI and below Const: Denies: fever(s), chills or fatigue Eyes: Denies: change in vision ENMT: Denies: throat pain, ear or mastoid pain or nasal discharge Card: Reports: lightheadedness; Denies: chest pain, palpitations or swelling of feet/ankles Resp: Denies: dyspnea, productive cough or wheezing GI: Denies: abdominal pain, nausea, vomiting, diarrhea or constipation : Denies: flank pain, difficulty urinating, dysuria or urinary frequency Musc: Denies: neck pain, back pain or joint pain Skin/Breast: Denies: rash Neuro: Reports: dizziness; Denies: headache(s), numbness in extremities or weakness in extremities Psych: Reports: anxiety and depression PFSH ED 2 PFSH: Medical History No pertinent family history Surgical History No pertinent past surgical history Social History Smoking and tobacco/nicotine status: current every day tobacco/nicotine user Alcohol intake: current Substance/Drug Use: current Physical Exam 2 Const: COMMON NORMALS: no acute distress, patient oriented x3 and no limitations GENERAL APPEARANCE: cooperative, comfortable and well developed ORIENTATION/CONSCIOUSNESS: Yes awake, Yes oriented to person, Yes oriented to place and Yes oriented to time HENMT: COMMON NORMALS: normocephalic, atraumatic and hearing grossly normal bilaterally HEAD & SCALP: normocephalic and atraumatic Eye: COMMON NORMALS: Equal, round and reactive pupils present, EOMs intact bilaterally and conjunctivae normal CONJUNCTIVA: Yes conjunctivae normal P UPIL: Yes Equal, round and reactive pupils present Neck/C-Spine: COMMON NORMALS: full ROM, supple and no JVD Resp: COMMON NORMALS: normal respiratory effort, No retractions, No use of accessory muscles and clear to auscultation bilaterally AUSCULTATION: clear to auscultation bilaterally Cardio: COMMON NORMALS: no JVD, regular rate, regular rhythm, No clicks present (Cardio), No murmurs present (Cardio) and No rub (Cardio) RATE: r egular rate RHYTHM: regular rhythm GI: COMMON NORMALS: Normal to inspection, nondistended, normoactive bowel sounds present, Soft to palpation and non-tender AUSCULTATION: Yes normoactive bowel sounds PALPATION: Yes Soft to palpation RECTAL EXAM: Yes deferred Extremity: COMMON NORMALS: normal to inspection, full ROM and capillary refill normal Neuro: COMMON NORMALS: patient oriented x3, CN's II-XII intact bilaterally, moves all extremities, no focal motor deficits and no sensory deficits noted SENSORIUM/ORIENTATION: Yes oriented to person, Yes oriented to place and Yes oriented to time Psych: COMMON NORMALS: mental status grossly normal and Normal thought process present THOUGHT PROCESS: Normal thought process present Skin: COMMON NORMALS: no rashes or lesions noted GENERAL SKIN EXAM: no rashes or lesions noted Course 2 Vital Signs: Vital signs: Vital Signs Temperature 97.9 F 07/29/23 15:55 Pulse Rate 58 L 07/29/23 18:36 Respiratory Rate 19 H 07/29/23 18:33 Blood Pressure 125/64 07/29/23 19:00 Pulse Oximetry 94 07/29/23 18:33 Oxygen Delivery Me thod Room Air 07/29/23 18:33 MDM - Dizziness Medical Decision Making Patient seen for 1 day of dizziness and lightheadedness that began this morning. He has been off of his Paxil for 3-4 days, and has not been able to get this prescription refilled. On arrival vitals are unremarkable. Physical examination normal. Lab work all unremarkable. His EKG did not demonstrate any acute explanations for being dizzy and lightheaded. Urinalysis did not show evidence of urinary tract infection. His orthostatic vital signs were nondiagnostic. I do believe his dizziness likely psychogenic secondary to cessation of his SSRI, as I gave him a dose of his normal 20 mg here in the emergency department and sent prescription to his pharmacy to take until he follows up with primary care to get refills. Strict return precautions are given and all other questions and concerns addressed at this time. Lab Data I reviewed the patient's lab results. 07/29/23 17:16 07/29/23 19:14 Laboratory Results WBC 7.63 10^3/uL (3.29-11.43) 07/29/23 17:16 RBC 5.28 10^6/uL (3.85-5.65) 07/29/23 17:16 Hgb 16.60 g/dL (11.27-16.99) 07/29/23 17:16 Hct 48.8 % (37-53) 07/29/23 17:16 MCV 92.4 fl (82-101) 07/29/23 17:16 MCH 31.4 pg (27-33) 07/29/23 17:16 MCHC 34.0 g/dL (30-55) 07/29/23 17:16 RDW 12.5 % (12.1-15.1) 07/29/23 17:16 Plt Count 159 10^3/cmm (157-399) 07/29/23 17:16 MPV 11.4 fL (7.4-10.4) H 07/29/23 17:16 Neut % (Auto) 69.7 % 07/29/23 17:16 Lymph % (Auto) 21.9 % 07/29/23 17:16 [place] % (Auto) 6.7 % 07/29/23 17:16 Eos % (Auto) 0.9 % 07/29/23 17:16 Baso % (Auto) 0.7 % 07/29/23 17:16 Neut # (Auto) 5.32 10^3/uL (1.8-7.7) 07/29/23 17:16 Lymph # (Auto) 1.7 10^3/uL (0.8-4.8) 07/29/23 17:16 [place] # (Auto) 0.5 10^3/uL (0.2-0.9) 07/29/23 17:16 Eos # (Auto) 0.1 10^3/uL (0.0-0.8) 07/29/23 17:16 Baso # (Auto) 0.1 10^3/uL (0.0-0.1) 07/29/23 17:16 Nucleated RBC % (auto) 0 % 07/29/23 17:16 Nucleated RBCs # 0.0 /100WBC 07/29/23 17:16 Sodium 143 mmol/L (136-145) 07/29/23 19:14 Potassium 3.9 mmol/L (3.5-5.1) 07/29/23 19:14 Chloride 106 mmol/L (98-107) 07/29/23 19:14 Carbon Dioxide 28 mmol/L (22-29) 07/29/23 19:14 Anion Gap 12.9 (5-19) 07/29/23 19:14 BUN 8 mg/dL (6-20) 07/29/23 19:14 Creatinine 0.7 mg/dL (0.7-1.2) 07/29/23 19:14 GFR Calculation 137.4 mL/min (90-130) H 07/29/23 19:14 Glucose 80 mg/dL (65-115) 07/29/23 19:14 Calculated Osmolality 293 mOsm/kg (285-295) 07/29/23 19:14 Calcium 8.9 mg/dL (8.5-10.5) 07/29/23 19:14 Total Bilirubin 0.5 mg/dL (0.15-1.2) 07/29/23 19:14 AST 18 U/L (0-40) 07/29/23 19:14 ALT 14 U/L (0-41) 07/29/23 19:14 Alkaline Phosphatase 83 U/L (40-130) 07/29/23 19:14 Total Protein 7.3 g/dL (6.6-8.7) 07/29/23 19:14 Albumin 4.7 g/dL (3.5-5.2) 07/29/23 19:14 Globulin 2.6 g/dL (1.3-4.6) 07/29/23 19:14 Urine Color Colorless (Yellow) 07/29/23 17:30 Urine Appearance Clear (CLEAR) 07/29/23 17:30 Urine pH 8 (5-7) H 07/29/23 17:30 Ur Specific [place] 1.010 (1.005-1.030) 07/29/23 17:30 Urine Protein Neg (Negative) 07/29/23 17:30 Urine Glucose (UA) Norm (Normal) 07/29/23 17:30 Urine Ketones Negative (Negative) 07/29/23 17:30 Urine Blood Neg (Negative) 07/29/23 17:30 Urine Nitrate Negative (Negative) 07/29/23 17:30 Urine Bilirubin Neg (Negative) 07/29/23 17:30 Prot Sulfosalicylic Acd Negative (Negative) 07/29/23 17:30 Urine Urobilinogen Norm mg/dL (Negative) 07/29/23 17:30 Ur Leukocyte Esterase Negative (Negative) 07/29/23 17:30 No radiology studies performed this visit Discharge Plan Discharge Patient Disposition: Home Clinical Impression: Dizziness Condition: Stable Prescriptions: Continued paroxetine HCl 20 mg tablet 20 mg PO BEDTIME Qty: 30 0RF No Action buspirone 10 mg tablet 10 mg PO BID trazodone 50 mg tablet 50 mg PO BEDTIME ibuprofen 600 mg tablet 600 mg PO Q8H PRN (Reason: pain) Qty: 60 0RF Ativan 1 mg Tablet 1 mg PO TID PRN (Reason: Anxiety) albuterol sulfate 90 mcg/actuation HFA aerosol inhaler 2 inh INHALATION Q4H PRN (Reason: shortness of breath or wheezing) Qty: 18 0RF amoxicillin-pot clavulanate 875-125 mg tablet 1 tab PO BID Qty: 14 0RF mupirocin 2 % ointment 1 applic topical BID Qty: 22 0RF buspirone 30 mg tablet 30 mg PO BID Qty: 60 0RF lorazepam 1 mg tablet 0.5 mg PO BID PRN (Reason: anxiety) Qty: 10 0RF hydroxyzine HCl 25 mg tablet 25 mg PO Q6H PRN (Reason: anxiety) Qty: 14 0RF Discharge Orders: Discharge ED (Routine); Ordered 07/29/23 Ordered By: Zan Liang Discharge Diet: Usual diet Discharge Activity: Increase activity as tolerated Patient Instructions: Lightheadedness (ED), Dizziness (ED) Activity Restrictions/Additional Instructions: Continue taking your Paxil. Follow-up with primary care for any refills, and for any further evaluation. Plenty of fluids. Return with any new or concerning symptoms you may have. Coding Level of Care Code ED Supervisor [employer] for [employer] Documented by User: Zelalem Salcedo DO 07/29/23 22:05 HPI - Dizziness 2 General: Chief Complaint: Dizziness Stated Complaint: dizzy Time Seen by Provider: 07/29/23 16:54 PFSH ED 2 PFSH: Medical History No pertinent family history Surgical History No pertinent past surgical history Social History Smoking and tobacco/nicotine status: current every day tobacco/nicotine user Alcohol intake: current Substance/Drug Use: current Course 2 Vital Signs: Vital signs: Vital Signs Temperature 97.9 F 07/29/23 15:55 Pulse Rate 58 L 07/29/23 18:36 Respiratory Rate 19 H 07/29/23 18:33 Blood Pressure 125/64 07/29/23 19:00 Pulse Oximetry 94 07/29/23 18:33 Oxygen Delivery Me thod Room Air 07/29/23 18:33 MDM - Dizziness Medical Decision Making Patient seen for 1 day of dizziness and lightheadedness that began this morning. He has been off of his Paxil for 3-4 days, and has not been able to get this prescription refilled. On arrival vitals are unremarkable. Physical examination normal. Lab work all unremarkable. His EKG did not demonstrate any acute explanations for being dizzy and lightheaded. Urinalysis did not show evidence of urinary tract infection. His orthostatic vital signs were nondiagnostic. I do believe his dizziness likely psychogenic secondary to cessation of his SSRI, as I gave him a dose of his normal 20 mg here in the emergency department and sent prescription to his pharmacy to take until he follows up with primary care to get refills. Strict return precautions are given and all other questions and concerns addressed at this time. Chart reviewed and patient discussed with midlevel. Agree with assessment and plan. Lab Data 07/29/23 17:16 07/29/23 19:14 Laboratory Results WBC 7.63 10^3/uL (3.29-11.43) 07/29/23 17:16 RBC 5.28 10^6/uL (3.85-5.65) 07/29/23 17:16 Hgb 16.60 g/dL (11.27-16.99) 07/29/23 17:16 Hct 48.8 % (37-53) 07/29/23 17:16 MCV 92.4 fl (82-101) 07/29/23 17:16 MCH 31.4 pg (27-33) 07/29/23 17:16 MCHC 34.0 g/dL (30-55) 07/29/23 17:16 RDW 12.5 % (12.1-15.1) 07/29/23 17:16 Plt Count 159 10^3/cmm (157-399) 07/29/23 17:16 MPV 11.4 fL (7.4-10.4) H 07/29/23 17:16 Neut % (Auto) 69.7 % 07/29/23 17:16 Lymph % (Auto) 21.9 % 07/29/23 17:16 [place] % (Auto) 6.7 % 07/29/23 17:16 Eos % (Auto) 0.9 % 07/29/23 17:16 Baso % (Auto) 0.7 % 07/29/23 17:16 Neut # (Auto) 5.32 10^3/uL (1.8-7.7) 07/29/23 17:16 Lymph # (Auto) 1.7 10^3/uL (0.8-4.8) 07/29/23 17:16 [place] # (Auto) 0.5 10^3/uL (0.2-0.9) 07/29/23 17:16 Eos # (Auto) 0.1 10^3/uL (0.0-0.8) 07/29/23 17:16 Baso # (Auto) 0.1 10^3/uL (0.0-0.1) 07/29/23 17:16 Nucleated RBC % (auto) 0 % 07/29/23 17:16 Nucleated RBCs # 0.0 /100WBC 07/29/23 17:16 Sodium 143 mmol/L (136-145) 07/29/23 19:14 Potassium 3.9 mmol/L (3.5-5.1) 07/29/23 19:14 Chloride 106 mmol/L (98-107) 07/29/23 19:14 Carbon Dioxide 28 mmol/L (22-29) 07/29/23 19:14 Anion Gap 12.9 (5-19) 07/29/23 19:14 BUN 8 mg/dL (6-20) 07/29/23 19:14 Creatinine 0.7 mg/dL (0.7-1.2) 07/29/23 19:14 GFR Calculation 137.4 mL/min (90-130) H 07/29/23 19:14 Glucose 80 mg/dL (65-115) 07/29/23 19:14 Calculated Osmolality 293 mOsm/kg (285-295) 07/29/23 19:14 Calcium 8.9 mg/dL (8.5-10.5) 07/29/23 19:14 Total Bilirubin 0.5 mg/dL (0.15-1.2) 07/29/23 19:14 AST 18 U/L (0-40) 07/29/23 19:14 ALT 14 U/L (0-41) 07/29/23 19:14 Alkaline Phosphatase 83 U/L (40-130) 07/29/23 19:14 Total Protein 7.3 g/dL (6.6-8.7) 07/29/23 19:14 Albumin 4.7 g/dL (3.5-5.2) 07/29/23 19:14 Globulin 2.6 g/dL (1.3-4.6) 07/29/23 19:14 Urine Color Colorless (Yellow) 07/29/23 17:30 Urine Appearance Clear (CLEAR) 07/29/23 17:30 Urine pH 8 (5-7) H 07/29/23 17:30 Ur Specific [place] 1.010 (1.005-1.030) 07/29/23 17:30 Urine Protein Neg (Negative) 07/29/23 17:30 Urine Glucose (UA) Norm (Normal) 07/29/23 17:30 Urine Ketones Negative (Negative) 07/29/23 17:30 Urine Blood Neg (Negative) 07/29/23 17:30 Urine Nitrate Negative (Negative) 07/29/23 17:30 Urine Bilirubin Neg (Negative) 07/29/23 17:30 Prot Sulfosalicylic Acd Negative (Negative) 07/29/23 17:30 Urine Urobilinogen Norm mg/dL (Negative) 07/29/23 17:30 Ur Leukocyte Esterase Negative (Negative) 07/29/23 17:30 Discharge Plan Discharge Patient Disposition: Home Clinical Impression: Dizziness Condition: Stable Prescriptions: Continued paroxetine HCl 20 mg tablet 20 mg PO BEDTIME Qty: 30 0RF No Action buspirone 10 mg tablet 10 mg PO BID trazodone 50 mg tablet 50 mg PO BEDTIME ibuprofen 600 mg tablet 600 mg PO Q8H PRN (Reason: pain) Qty: 60 0RF Ativan 1 mg Tablet 1 mg PO TID PRN (Reason: Anxiety) albuterol sulfate 90 mcg/actuation HFA aerosol inhaler 2 inh INHALATION Q4H PRN (Reason: shortness of breath or wheezing) Qty: 18 0RF amoxicillin-pot clavulanate 875-125 mg tablet 1 tab PO BID Qty: 14 0RF mupirocin 2 % ointment 1 applic topical BID Qty: 22 0RF buspirone 30 mg tablet 30 mg PO BID Qty: 60 0RF lorazepam 1 mg tablet 0.5 mg PO BID PRN (Reason: anxiety) Qty: 10 0RF hydroxyzine HCl 25 mg tablet 25 mg PO Q6H PRN (Reason: anxiety) Qty: 14 0RF Discharge Orders: Discharge ED (Routine); Ordered 07/29/23 Ordered By: Zan Liang Discharge Diet: Usual diet Discharge Activity: Increase activity as tolerated Patient Instructions: Lightheadedness (ED), Dizziness (ED) Activity Restrictions/Additional Instructions: Continue taking your Paxil. Follow-up with primary care for any refills, and for any further evaluation. Plenty of fluids. Return with any new or concerning symptoms you may have. Coding Level of Care Code ED Supervisor [employer] for Violet Villalobos
[2023-07-29] MEDS: PARoxetine 20 mg Tablet PO (17:31)
[2023-07-29] MEDS: sodium chloride 0.9% 1,000 ML 999 ML IV (17:32)
[2023-07-29 18:17] LABS: Basophils # 0.1 10^3/uL (0.0-0.1); Basophils % 0.7 %; Eosinophils # 0.1 10^3/uL (0.0-0.8); Eosinophils % 0.9 %; Hematocrit 48.8 % (37-53); Lymphocytes # 1.7 10^3/uL (0.8-4.8); Lymphocytes % 21.9 %; Mean Corpuscular Hemoglobin 31.4 pg (27-33); Mean Corpuscular Volume 92.4 fl (82-101); Mean Platelet Volume 11.4 fL (7.4-10.4); Monocytes # 0.5 10^3/uL (0.2-0.9); Monocytes % 6.7 %; Neutrophils # 5.32 10^3/uL (1.8-7.7); Neutrophils % 69.7 %; Nucleated Red Blood Cells % 0 %; Platelet Count 159 10^3/cmm (157-399); Red Blood Count 5.28 10^6/uL (3.85-5.65); Red Cell Distribution Width 12.5 % (12.1-15.1); White Blood Count 7.63 10^3/uL (3.29-11.43)
[2023-07-29 18:30] LABS: Add Urine Microscopic? NO; Charge for UA Resulting for Rev
[2023-07-29 18:33] VITALS: BP 128/68; PULSE 75; RESP 19; O2SAT 94
[2023-07-29 18:36] VITALS: BP 125/67; BP 129/75; BP 134/71; PULSE 58; PULSE 60; PULSE 75
[2023-07-29 18:57] LABS: Bilirubin Urine Neg (Negative); Blood Urine Neg (Negative); Glucose Urine UA Norm (Normal); Ketones Urine Negative (Negative); Leukocyte Esterase Urine Negative (Negative); Nitrate Urine Negative (Negative); Protein Urine Neg (Negative); Sulfosalicylic Acid Urine Negative (Negative); Urine Appearance Clear (CLEAR); Urine Color Colorless (Yellow); Urobilinogen Urine Norm (Negative); pH Urine 8 (5-7)
[2023-07-29 19:00] VITALS: BP 125/64
[2023-07-29 19:44] LABS: Alanine Aminotransferase 14 U/L (0-41); Albumin Level 4.7 g/dL (3.5-5.2); Alkaline Phosphatase 83 U/L (40-130); Blood Urea Nitrogen 8 mg/dL (6-20); Calcium 8.9 mg/dL (8.5-10.5); Carbon Dioxide 28 mmol/L (22-29); Chloride 106 mmol/L (98-107); Creatinine Clr Calc Pharmacy 204.7803; Globulin 2.6 g/dL (1.3-4.6); Glomerular Filtration Rate 137.4 mL/min (90-130); Glucose 80 mg/dL (65-115); Osmolality Calculated 293 mOsm/kg (285-295); Sodium 143 mmol/L (136-145); Total Bilirubin 0.5 mg/dL (0.15-1.2); Total Protein 7.3 g/dL (6.6-8.7)
[2023-07-29 20:02] LABS: Anion Gap 12.9 (5-19); Aspartate Amino Transferase 18 U/L (0-40); Potassium 3.9 mmol/L (3.5-5.1)
== END 2023-07-29 20:36 | disposition home or self-care (01) ==
PROVIDERS: Emergency Medicine; Emergency Provider Physician Assistant
DX: R42 Dizziness and giddiness (principal); Z72.0 Tobacco use
CPT/HCPCS: 36415; 80053; 81003; 85025; 93005; 99284; J7030

== ENCOUNTER 2023-11-24 22:23 | Emergency (ER) | payer SELFPAY ==
[2023-11-24 22:24] VITALS: BP 146/79; PULSE 72; RESP 16; TEMP 36.7; O2SAT 96; BMI 21.4
[2023-11-24 22:28] VITALS: BP 152/79; PULSE 69; RESP 18; O2SAT 98
--- NOTE | 2023-11-24 22:29 | ED_ITS ---
HPI - Allergic Reaction General: Chief complaint: Allergic Reaction Stated complaint: ALLERGIC REACTION Time Seen by Provider: 11/24/23 22:25 History of Present Illness: HPI narrative: 23-year-old man who took a bulk of oral THC gummy and then developed an allergic reaction. He became red and had pruritus. No shortness of breath. No throat closing. No tongue swelling. He received some Benadryl and pruritus is better and is still just a little bit red. Related Data Home Medications Medication Instructions Recorded Confirmed trazodone 50 mg tablet 50 mg PO BEDTIME 07/16/22 11/04/23 Previous Rx's Medication Instructions Recorded ibuprofen 600 mg tablet 600 mg PO Q8H PRN pain #60 tabs 07/16/22 albuterol sulfate 90 mcg/actuation 2 inh inhalation Q4H PRN shortness 09/08/22 aerosol inhaler of breath or wheezing #18 grams buspirone 30 mg tablet 30 mg PO BID #60 tabs 10/18/22 hydroxyzine HCl 25 mg tablet 25 mg PO Q6H PRN anxiety #14 tabs 06/27/23 paroxetine HCl 20 mg tablet 20 mg PO BEDTIME #30 tabs 07/29/23 mupirocin 2 % topical ointment 1 applic topical BID #22 grams 11/04/23 sulfamethoxazole 800 1 tab PO BID 7 days #14 tabs 11/04/23 mg-trimethoprim 160 mg tablet (Bactrim DS) prednisone 20 mg tablet 60 mg (3 x 20 mg) PO DAILY 5 days 11/24/23 #15 tabs Allergies Allergy/AdvReac Type Severity Reaction Status Date / Time metoclopramide [From Reglan] Allergy Mild ADR-Agitate Verified 11/04/23 15:21 d Review of Systems 2 Narrative: Constitutional symptoms: Negative except as documented in HPI. Skin symptoms: Negative except as documented in HPI. Eye symptoms: Negative except as documented in HPI. ENMT symptoms: Negative except as documented in HPI. Respiratory symptoms: Negative except as documented in HPI. Cardiovascular symptoms: Negative except as documented in HPI. Gastrointestinal symptoms: Negative except as documented in HPI. Genitourinary symptoms: Negative except as documented in HPI. Musculoskeletal symptoms: Negative except as documented in HPI. Neurologic symptoms: Negative except as documented in HPI. Psychiatric symptoms: Negative except as documented in HPI. Endocrine symptoms: Negative except as documented in HPI. PFSH ED PFSH: Medical History No pertinent family history Surgical History No pertinent past surgical history Social History Smoking and tobacco/nicotine status: current every day tobacco/nicotine user (1 PPD) Alcohol intake: current Substance/Drug Use: current Physical Exam Narrative: EXAM NARRATIVE: General: Alert, no acute distress. Skin: Warm, dry. Head: Normocephalic, atraumatic. Mild diffuse erythema Neck: Supple, trachea midline. Eye: Extraocular movements are intact. Ears, nose, mouth and throat: mucosa moist. Cardiovascular: Regular, Normal peripheral perfusion. Respiratory: Lungs are clear to auscultation, respirations are non-labored, breath sounds are equal, Symmetrical chest wall expansion. Gastrointestinal: Soft, Nontender, Non distended Musculoskeletal: Normal ROM, no deformity. Neurological: Alert and oriented, No focal neurological deficit observed. Psychiatric: Cooperative, appropriate mood & affect. Course Vital Signs: Vital signs: Vital Signs Temperature 98.0 F 11/24/23 22:24 Pulse Rate 69 11/24/23 22:28 Respiratory Rate 18 11/24/23 22:28 Blood Pressure 152/79 11/24/23 22:28 Pulse Oximetry 98 11/24/23 22:28 Oxygen Delivery Me thod Room Air 11/24/23 22:28 MDM - Allergic Reaction Medical Decision Making Medical decision making: Differential diagnosis including but not limited to and based on the above HPI, review of systems and physical exam: In a patient with complaints of allergic reaction have concern for anaphylaxis, medication reactions and viral reactions. Reexamination: Patient says he feels improved. Patient remained stable. No increased work of breathing. No altered mental status. No focal motor deficits. Assessment and plan: Allergic reaction ?IV Benadryl, IV Solu-Medrol and IV Pepcid - Discharged home - Discussed plan with patient. Answered any questions. - Evaluation and treatment of this problem were appropriate in the emergency setting. No radiology studies performed this visit Discharge Plan Discharge Patient Disposition: Home Clinical Impression: Allergic reaction, Adverse reaction to drug Condition: Stable Prescriptions: New prednisone 20 mg tablet 60 mg PO DAILY 5 Days Qty: 15 0RF No Action trazodone 50 mg tablet 50 mg PO BEDTIME ibuprofen 600 mg tablet 600 mg PO Q8H PRN (Reason: pain) Qty: 60 0RF sulfamethoxazole-trimethoprim [Bactrim DS] 800-160 mg tablet 1 tab PO BID 7 Days Qty: 14 0RF mupirocin 2 % ointment 1 applic topical BID Qty: 22 0RF albuterol sulfate 90 mcg/actuation HFA aerosol inhaler 2 inh INHALATION Q4H PRN (Reason: shortness of breath or wheezing) Qty: 18 0RF buspirone 30 mg tablet 30 mg PO BID Qty: 60 0RF hydroxyzine HCl 25 mg tablet 25 mg PO Q6H PRN (Reason: anxiety) Qty: 14 0RF paroxetine HCl 20 mg tablet 20 mg PO BEDTIME Qty: 30 0RF Discharge Orders: Discharge ED (Routine); Ordered 11/24/23 Ordered By: Nelia Linda Discharge Diet: Usual diet Discharge Activity: Increase activity as tolerated Patient Instructions: Adverse Drug Reaction (ED) Activity Restrictions/Additional Instructions: Thank you for choosing [facility] for your healthcare needs today. Please realize this is an emergency room and that we are providing you with a medical screening exam and this may not be complete and all inclusive of all the testing and or work up that you may need to determine your ailment or severity of your illness. You have been screened and evaluated and felt safe for discharge. Health conditions do change or evolve sometimes and as such it is important that you follow up with your Primary Doctor to be re checked, 3-5 days is a general good time frame for follow up. You are always welcome to return to the ED for re assessment if your symptoms are worsening or you have new concerns Coding Level of Care Code ED Adon for Violet Villalobos
[2023-11-24] MEDS: famotidine 20 mg/2 mL INJ 40 MG IVP (22:35)
[2023-11-24] MEDS: methylPREDNISolone sod succ 125 mg/2 mL INJ IVP (22:35)
[2023-11-24 23:13] VITALS: BP 118/60; PULSE 70; O2SAT 96
== END 2023-11-24 23:15 | disposition home or self-care (01) ==
PROVIDERS: Emergency Provider Emergency Medicine; PCP Physician Assistant
DX: L27.0 Generalized skin eruption due to drugs and medicaments taken internally (principal); T40.715A Adverse effect of cannabis, initial encounter
CPT/HCPCS: 96374; 96375; 99284; J2919; J3490

== ENCOUNTER 2023-12-06 01:09 | Emergency (ER) | payer SELFPAY ==
[2023-12-06] VITALS (9 sets, daily range): BP systolic 88–163; BP diastolic 48–69; PULSE 53–70; RESP 13–24; TEMP 36.9; O2SAT 93–97; BMI 23.1
--- NOTE | 2023-12-06 01:16 | W.ED.ALLEREA ---
HPI - Allergic Reaction General: Chief complaint: Allergic Reaction Stated complaint: ALLERGIC REACTION Time Seen by Provider: 12/06/23 01:12 Source: patient and EMS Mode of arrival: EMS Limitations: no limitations History of Present Illness: HPI narrative: 23-year-old male states that he had allergic reaction started roughly an hour ago. He states he started having redness swelling and rash to his face and extremities. He had a reaction 2 weeks ago as well. Patient received epinephrine along with steroid Benadryl and route states he feels much improved his rash is practically resolved he does feel anxious at this time denies any shortness of breath Associated symptoms: Deny abdominal pain, nausea or vomiting Related Data Home Medications Medication Instructions Recorded Confirmed trazodone 50 mg tablet 50 mg PO BEDTIME 07/16/22 11/04/23 Previous Rx's Medication Instructions Recorded ibuprofen 600 mg tablet 600 mg PO Q8H PRN pain #60 tabs 07/16/22 albuterol sulfate 90 mcg/actuation 2 inh inhalation Q4H PRN shortness 09/08/22 aerosol inhaler of breath or wheezing #18 grams buspirone 30 mg tablet 30 mg PO BID #60 tabs 10/18/22 hydroxyzine HCl 25 mg tablet 25 mg PO Q6H PRN anxiety #14 tabs 06/27/23 paroxetine HCl 20 mg tablet 20 mg PO BEDTIME #30 tabs 07/29/23 mupirocin 2 % topical ointment 1 applic topical BID #22 grams 11/04/23 sulfamethoxazole 800 1 tab PO BID 7 days #14 tabs 11/04/23 mg-trimethoprim 160 mg tablet (Bactrim DS) epinephrine 0.3 mg/0.3 mL 0.3 mg (0.3 mL) IM Q20M PRN 12/06/23 injection, auto-injector (EpiPen anaphylaxis #2 ea 2-Demetrius) Allergies Allergy/AdvReac Type Severity Reaction Status Date / Time metoclopramide [From Reglan] Allergy Mild ADR-Agitate Verified 11/04/23 15:21 d Review of Systems Const: Denies: fever(s), chills, body aches or change in appetite ENMT: Denies: throat pain or dental pain Card: Denies: chest pain Resp: Denies: dyspnea GI: Denies: abdominal pain, nausea, vomiting or diarrhea Musc: Denies: neck pain or back pain Skin/Breast: Reports: rash, pruritus and erythema Neuro: Denies: headache(s) PFSH ED PFSH: Medical History No pertinent family history Surgical History No pertinent past surgical history Social History Smoking and tobacco/nicotine status: current every day tobacco/nicotine user (1 PPD) Alcohol intake: current Substance/Drug Use: current Physical Exam Const: COMMON NORMALS: no acute distress, patient oriented x3 and healthy appearing HENMT: COMMON NORMALS: normocephalic and atraumatic HEAD & SCALP: normocephalic and atraumatic Neck/C-Spine: COMMON NORMALS: full ROM and supple Chest: COMMONS NORMALS: normal inspection of the chest Resp: COMMON NORMALS: normal respiratory effort, No retractions, No use of accessory muscles and clear to auscultation bilaterally AUSCULTATION: clear to auscultation bilaterally Cardio: COMMON NORMALS: regular rate RATE: regular rate Extremity: COMMON NORMALS: full ROM Neuro: COMMON NORMALS: patient oriented x3, moves all extremities and no focal motor deficits Psych: COMMON NORMALS: mental status grossly normal, Normal thought process present and cooperative THOUGHT PROCESS: Normal thought process present Skin: COMMON NORMALS: no wounds NARRATIVE SKIN EXAM: Slight urticarial rash to feet Course Vital Signs: Vital signs: Vital Signs Temperature 98.5 F 12/06/23 01:12 Pulse Rate 53 L 12/06/23 04:02 Respiratory Rate 13 12/06/23 03:11 Blood Pressure 138/58 12/06/23 04:02 Pulse Oximetry 95 12/06/23 04:02 Oxygen Delivery Me thod Room Air 12/06/23 01:59 MDM - Allergic Reaction Medical Decision Making Patient presents here with allergic reaction is rash is resolved he has been well-appearing here he stable for discharge prescribed EpiPen he is follow-up with PCP and return if worsening. Medical Records I reviewed the patient's medical records. No radiology studies performed this visit Discharge Plan Discharge Patient Disposition: Home Clinical Impression: Allergic reaction Condition: Stable Prescriptions: New EpiPen 2-Demetrius 0.3 mg/0.3 mL auto-injector 0.3 mg IM Q20M PRN (Reason: anaphylaxis) Qty: 2 0RF Rx Instructions: for 2 doses No Action trazodone 50 mg tablet 50 mg PO BEDTIME ibuprofen 600 mg tablet 600 mg PO Q8H PRN (Reason: pain) Qty: 60 0RF sulfamethoxazole-trimethoprim [Bactrim DS] 800-160 mg tablet 1 tab PO BID 7 Days Qty: 14 0RF mupirocin 2 % ointment 1 applic topical BID Qty: 22 0RF albuterol sulfate 90 mcg/actuation HFA aerosol inhaler 2 inh INHALATION Q4H PRN (Reason: shortness of breath or wheezing) Qty: 18 0RF buspirone 30 mg tablet 30 mg PO BID Qty: 60 0RF hydroxyzine HCl 25 mg tablet 25 mg PO Q6H PRN (Reason: anxiety) Qty: 14 0RF paroxetine HCl 20 mg tablet 20 mg PO BEDTIME Qty: 30 0RF Discharge Orders: Discharge ED (Routine); Ordered 12/06/23 Ordered By: Miky Garsia Referrals: Nadja Nance PA [Primary Care Provider] - 4-7 days Discharge Diet: Advance as tolerated Discharge Activity: Resume usual activity Patient Instructions: General Allergic Reaction (ED) Coding Level of Care Code ED Switch Box Installer for Violet Villalobos
[2023-12-06] MEDS: famotidine 20 mg/2 mL INJ 40 MG IVP (01:27)
[2023-12-06] MEDS: LORazepam 2 mg/mL INJ 1 mL 1 MG IVP (01:27)
[2023-12-06] MEDS: sodium chloride 0.9% 1,000 ML 999 ML IV ×2 (02:47→03:47)
--- NOTE | 2023-12-06 03:42 | PC.NURSE ---
Dr Garsia gave this nurse verbal for another NS IV bolus
== END 2023-12-06 04:08 | disposition home or self-care (01) ==
PROVIDERS: Emergency Provider Emergency Medicine; PCP Physician Assistant
DX: T78.40XA Allergy, unspecified, initial encounter (principal); F17.210 Nicotine dependence, cigarettes, uncomplicated; X58.XXXA Exposure to other specified factors, initial encounter
CPT/HCPCS: 96361; 96374; 96375; 99284; J2060; J3490; J7030

== ENCOUNTER → 2024-01-08 15:13 | Outpatient (BNVA) | payer SELFPAY | PROVIDERS: PCP Physician Assistant; Visit Provider Family Medicine | DX: R50.9 Fever, unspecified (principal) | CPT/HCPCS: 87400; 87426 ==

== ENCOUNTER → 2024-03-19 08:29 | Outpatient (BNVA) | payer SELFPAY | PROVIDERS: PCP Physician Assistant; Visit Provider Emergency Medicine | DX: J02.9 Acute pharyngitis, unspecified (principal); R52 Pain, unspecified | CPT/HCPCS: 87071; 87400; 87880 ==

== ENCOUNTER 2024-04-20 18:51 | Emergency (ER) | payer SELFPAY ==
[2024-04-20 19:03] VITALS: BP 129/73; PULSE 71; TEMP 36.7; O2SAT 100; BMI 21.9
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
[2024-04-20 20:10] VITALS: BP 132/70; PULSE 73; O2SAT 99
== END 2024-04-20 20:11 | disposition home or self-care (01) ==
PROVIDERS: Emergency Provider Physician Assistant; PCP Physician Assistant
DX: T22.00XA Burn of unspecified degree of shoulder and upper limb, except wrist and hand, unspecified site, initial encounter (principal); L25.9 Unspecified contact dermatitis, unspecified cause; Z72.0 Tobacco use; X58.XXXA Exposure to other specified factors, initial encounter
CPT/HCPCS: 99283

== ENCOUNTER 2024-06-12 13:19 | Emergency (ER) | payer SELFPAY ==
[2024-06-12 13:29] VITALS: BP 138/80; PULSE 77; RESP 18; TEMP 36.6; O2SAT 99; BMI 23.7
[2024-06-12 14:07] LABS: Basophils % 0.4 %; Eosinophils # 0.1 10^3/uL (0.0-0.8); Eosinophils % 0.9 %; Hematocrit 50.7 % (37-53); Lymphocytes # 0.5 10^3/uL (0.8-4.8); Lymphocytes % 5.2 %; Mean Corpuscular HGB Conc 33.5 g/dL (30-55); Mean Corpuscular Hemoglobin 31.1 pg (27-33); Mean Corpuscular Volume 92.9 fl (82-101); Mean Platelet Volume 10.6 fL (7.4-10.4); Monocytes # 0.5 10^3/uL (0.2-0.9); Monocytes % 4.7 %; Neutrophils # 8.65 10^3/uL (1.8-7.7); Neutrophils % 88.6 %; Nucleated Red Blood Cells % 0 %; Platelet Count 197 10^3/cmm (157-399); Red Blood Count 5.46 10^6/uL (3.85-5.65); Red Cell Distribution Width 12.6 % (12.1-15.1); White Blood Count 9.77 10^3/uL (3.29-11.43)
[2024-06-12 14:26] LABS: Alanine Aminotransferase 21 U/L (0-41); Albumin Level 4.9 g/dL (3.5-5.2); Alkaline Phosphatase 79 U/L (40-130); Aspartate Amino Transferase 22 U/L (0-40); Blood Urea Nitrogen 14 mg/dL (6-20); Calcium 9.3 mg/dL (8.5-10.5); Carbon Dioxide 28 mmol/L (22-29); Chloride 103 mmol/L (98-107); Globulin 2.6 g/dL (1.3-4.6); Glucose 107 mg/dL (65-115); Osmolality Calculated 293 mOsm/kg (285-295); Sodium 141 mmol/L (136-145); Total Bilirubin 0.4 mg/dL (0.15-1.2); Total Protein 7.5 g/dL (6.6-8.7)
[2024-06-12 14:34] LABS: Anion Gap 13.8 (5-19); Potassium 3.8 mmol/L (3.5-5.1)
== END 2024-06-12 17:14 | disposition left against medical advice (07) ==
PROVIDERS: Emergency Provider Family Medicine; PCP Physician Assistant
DX: Z53.21 Procedure and treatment not carried out due to patient leaving prior to being seen by health care provider (principal); Z01.89 Encounter for other specified special examinations
CPT/HCPCS: 36415; 80053; 85025

== ENCOUNTER 2024-07-25 15:37 | Emergency (ER) | payer SELFPAY ==
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
[2024-07-25 15:45] VITALS: BP 126/81; PULSE 93; TEMP 36.6; O2SAT 98; BMI 23.1
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
[2024-07-25] MEDS: LORazepam 1 mg Tablet PO (17:08)
[2024-07-25] MEDS: amoxicillin-clav 875-125 mg Tablet 1 TAB PO (17:08)
[2024-07-25 17:14] VITALS: BP 129/71; PULSE 83; O2SAT 97
== END 2024-07-25 17:15 | disposition home or self-care (01) ==
PROVIDERS: Emergency Provider Emergency Medicine; PCP Physician Assistant
DX: S63.91XA Sprain of unspecified part of right wrist and hand, initial encounter (principal); Z72.0 Tobacco use; X58.XXXA Exposure to other specified factors, initial encounter
CPT/HCPCS: 73130; 99283; J9999

== ENCOUNTER 2024-08-02 15:24 | Emergency (ER) | payer SELFPAY ==
[2024-08-02 15:41] VITALS: BP 117/67; PULSE 84; TEMP 38.1; O2SAT 99; BMI 22.5
[2024-08-02 16:18] LABS: Basophils % 0.4 %; Eosinophils % 0.2 %; Hematocrit 42.6 % (37-53); Lymphocytes # 0.8 10^3/uL (0.8-4.8); Lymphocytes % 7.7 %; Mean Corpuscular HGB Conc 33.8 g/dL (30-55); Mean Corpuscular Hemoglobin 31.4 pg (27-33); Mean Corpuscular Volume 92.8 fl (82-101); Monocytes # 0.7 10^3/uL (0.2-0.9); Monocytes % 7.3 %; Neutrophils # 8.37 10^3/uL (1.8-7.7); Neutrophils % 84.1 %; Nucleated Red Blood Cells % 0 %; Platelet Count 167 10^3/cmm (157-399); Red Blood Count 4.59 10^6/uL (3.85-5.65); Red Cell Distribution Width 12.3 % (12.1-15.1); White Blood Count 9.96 10^3/uL (3.29-11.43)
[2024-08-02 16:41] LABS: Alanine Aminotransferase 19 U/L (0-41); Albumin Level 4.4 g/dL (3.5-5.2); Alkaline Phosphatase 80 U/L (40-130); Aspartate Amino Transferase 27 U/L (0-40); Blood Urea Nitrogen 11 mg/dL (6-20); Calcium 8.9 mg/dL (8.5-10.5); Carbon Dioxide 26 mmol/L (22-29); Chloride 99 mmol/L (98-107); Creatinine Clr Calc Pharmacy 154.6973; Globulin 2.5 g/dL (1.3-4.6); Glucose 87 mg/dL (65-115); Osmolality Calculated 285 mOsm/kg (285-295); Sodium 138 mmol/L (136-145); Total Bilirubin 0.4 mg/dL (0.15-1.2); Total Protein 6.9 g/dL (6.6-8.7)
--- NOTE | 2024-08-02 17:44 | W.ED.GENADLT ---
HPI - General Adult General: Chief complaint: General Medical Stated complaint: dehyrdation Time Seen by Provider: 08/02/24 17:44 History of Present Illness: 24-year-old male presents emergency room with complaints of anxiety. He describes having had an episode while at work of breathing fast having numbing and tingling. He has had this multiple times before he realizes it is hyperventilating. He is calm and able to give a good history at this time. No homicidal or suicidal thoughts. Associated symptoms: Deny chest pain, dyspnea or rash Related Data Previous Rx's ?Medication ?Instructions ?Recorded epinephrine 0.3 mg/0.3 mL 0.3 mg (0.3 mL) IM Q20M PRN 12/06/23 injection, auto-injector (EpiPen anaphylaxis #2 ea 2-Demetrius) mupirocin 2 % topical ointment 1 applic topical BID #15 grams 04/20/24 triamcinolone acetonide 0.5 % 1 applic topical BID #15 grams 04/20/24 topical ointment buspirone 10 mg tablet 20 mg (2 x 10 mg) PO BID #120 tabs 04/22/24 nicotine 21 mg/24 hr daily 1 patch transdermal DAILY #28 ea 04/22/24 transdermal patch paroxetine HCl 20 mg tablet 20 mg PO DAILY #30 tabs 04/22/24 trazodone 50 mg tablet 50 mg PO .HS PRN insomnia #30 tabs 04/22/24 amoxicillin 500 mg-potassium 1 tab PO BID #14 tabs 07/25/24 clavulanate 125 mg tablet (Augmentin) lorazepam 2 mg tablet (Ativan) 2 mg buccal TID PRN anxiety #10 08/02/24 tabs Allergies Allergy/AdvReac Type Severity Reaction Status Date / Time metoclopramide (From Reglan) Allergy Mild ADR-Agitate Verified 08/02/24 15:45 d Review of Systems Const: Denies: fever(s) or chills Card: Denies: chest pain Resp: Denies: dyspnea GI: Denies: abdominal pain : Denies: dysuria, urinary frequency or urinary urgency Musc: Denies: neck pain or back pain Skin/Breast: Denies: rash PFS ED PFSH: Medical History Psychiatric care No pertinent family history Surgical History No pertinent past surgical history Social History Smoking and tobacco/nicotine status: current every day tobacco/nicotine user Alcohol intake: current Substance/Drug Use: current Physical Exam Const: GENERAL APPEARANCE: cooperative ORIENTATION/CONSCIOUSNESS: Yes awake, Yes oriented to person, Yes oriented to place and Yes oriented to time HENMT: COMMON NORMALS: normocephalic, atraumatic and hearing grossly normal bilaterally HEAD & SCALP: normocephalic and atraumatic Resp: COMMON NORMALS: normal respiratory effort, No retractions, No use of accessory muscles and clear to auscultation bilaterally AUSCULTATION: clear to auscultation bilaterally Cardio: COMMON NORMALS: regular rate, regular rhythm and No murmurs present (Cardio) RATE: regular rate RHYTHM: regular rhythm GI: COMMON NORMALS: Soft to palpation and No hepatosplenomegaly present AUSCULTATION: Yes normoactive bowel sounds PALPATION: Yes Soft to palpation, No Tenderness to palpation present (GI), No Guarding due to palpation present (GI) and Yes No hepatosplenomegaly present Extremity: COMMON NORMALS: normal to inspection, capillary refill normal, no clubbing, cyanosis or edema, no calf tenderness and no pedal edema Neuro: SENSORIUM/ORIENTATION: Yes oriented to person, Yes oriented to place and Yes oriented to time Skin: COMMON NORMALS: no rashes or lesions noted GENERAL SKIN EXAM: no rashes or lesions noted Course Vital Signs: Vital signs: Vital Signs Temperature 99.5 F 08/02/24 17:57 Pulse Rate 89 08/02/24 18:22 Respiratory Rate 16 08/02/24 17:57 Blood Pressure 129/70 08/02/24 18:22 Pulse Oximetry 97 08/02/24 18:22 Oxygen Delivery Me thod Room Air 08/02/24 17:57 MDM - General Adult Medical Decision Making Patient is having anxiety issues he tells me he is already done an intake at [facility] but he has not been back to look at medications. Will give a short prescription of Ativan for anxiety. Follow-up with [facility] soon as he is able. Medical Records I reviewed the patient's medical records. Lab Data I reviewed the patient's lab results. 08/02/24 15:55 08/02/24 16:09 Laboratory Results WBC 9.96 10^3/uL (3.29-11.43) 08/02/24 15:55 RBC 4.59 10^6/uL (3.85-5.65) 08/02/24 15:55 Hgb 14.40 g/dL (11.27-16.99) 08/02/24 15:55 Hct 42.6 % (37-53) 08/02/24 15:55 MCV 92.8 fl (82-101) 08/02/24 15:55 MCH 31.4 pg (27-33) 08/02/24 15:55 MCHC 33.8 g/dL (30-55) 08/02/24 15:55 RDW 12.3 % (12.1-15.1) 08/02/24 15:55 Plt Count 167 10^3/cmm (157-399) 08/02/24 15:55 MPV 10.0 fL (7.4-10.4) 08/02/24 15:55 Neut % (Auto) 84.1 % 08/02/24 15:55 Lymph % (Auto) 7.7 % 08/02/24 15:55 [place] % (Auto) 7.3 % 08/02/24 15:55 Eos % (Auto) 0.2 % 08/02/24 15:55 Baso % (Auto) 0.4 % 08/02/24 15:55 Neut # (Auto) 8.37 10^3/uL (1.8-7.7) H 08/02/24 15:55 Lymph # (Auto) 0.8 10^3/uL (0.8-4.8) 08/02/24 15:55 [place] # (Auto) 0.7 10^3/uL (0.2-0.9) 08/02/24 15:55 Eos # (Auto) 0.0 10^3/uL (0.0-0.8) 08/02/24 15:55 Baso # (Auto) 0.0 10^3/uL (0.0-0.1) 08/02/24 15:55 Nucleated RBC % (auto) 0 % 08/02/24 15:55 Nucleated RBCs # 0.0 /100WBC 08/02/24 15:55 Sodium 138 mmol/L (136-145) 08/02/24 16:09 Potassium 4.0 mmol/L (3.5-5.1) 08/02/24 16:09 Chloride 99 mmol/L (98-107) 08/02/24 16:09 Carbon Dioxide 26 mmol/L (22-29) 08/02/24 16:09 Anion Gap 17.0 (5-19) 08/02/24 16:09 BUN 11 mg/dL (6-20) 08/02/24 16:09 Creatinine 0.9 mg/dL (0.7-1.2) 08/02/24 16:09 GFR Calculation 102.0 mL/min (90-130) 08/02/24 16:09 Glucose 87 mg/dL (65-115) 08/02/24 16:09 Calculated Osmolality 285 mOsm/kg (285-295) 08/02/24 16:09 Calcium 8.9 mg/dL (8.5-10.5) 08/02/24 16:09 Total Bilirubin 0.4 mg/dL (0.15-1.2) 08/02/24 16:09 AST 27 U/L (0-40) 08/02/24 16:09 ALT 19 U/L (0-41) 08/02/24 16:09 Alkaline Phosphatase 80 U/L (40-130) 08/02/24 16:09 Total Protein 6.9 g/dL (6.6-8.7) 08/02/24 16:09 Albumin 4.4 g/dL (3.5-5.2) 08/02/24 16:09 Globulin 2.5 g/dL (1.3-4.6) 08/02/24 16:09 No radiology studies performed this visit Discharge Plan Discharge Patient Disposition: Home Clinical Impression: Generalized anxiety disorder, Hyperventilation Condition: Stable Prescriptions: New lorazepam [Ativan] 2 mg tablet 2 mg buccal TID PRN (Reason: anxiety) Qty: 10 0RF No Action buspirone 10 mg tablet 20 mg PO BID Qty: 120 2RF nicotine 21 mg/24 hr patch 24 hour 1 patch transdermal DAILY Qty: 28 2RF paroxetine HCl 20 mg tablet 20 mg PO DAILY Qty: 30 2RF trazodone 50 mg tablet 50 mg PO .HS PRN (Reason: insomnia) Qty: 30 2RF EpiPen 2-Demetrius 0.3 mg/0.3 mL auto-injector 0.3 mg IM Q20M PRN (Reason: anaphylaxis) Qty: 2 0RF Rx Instructions: for 2 doses amoxicillin-pot clavulanate [Augmentin] 500-125 mg tablet 1 tab PO BID Qty: 14 0RF triamcinolone acetonide 0.5 % ointment 1 applic topical BID Qty: 15 0RF mupirocin 2 % ointment 1 applic topical BID Qty: 15 0RF Discharge Orders: Discharge ED (Routine); Ordered 08/02/24 Ordered By: Zelalem Salcedo Referrals: Nadja Nance PA [Primary Care Provider, [employer] Operator] Discharge Diet: Usual diet Discharge Activity: Increase activity as tolerated Patient Instructions: Anxiety (ED), Opioid Safety, Pain Management Activity Restrictions/Additional Instructions: Thank you for choosing [facility] for your healthcare needs today. It is very important that you follow up as instructed or that you return to the Emergency Department should you have concerns or if your condition changes or worsens in any way. Follow-up with [facility] as soon as you are able for further management of anxiety issues. Stand Alone Forms: Work/School Release Print Language: Japanese Coding Level of Care Code ED Day Care Home Provider for Violet Villalobos
[2024-08-02 17:57] VITALS: BP 129/70; PULSE 80; RESP 16; TEMP 37.5; O2SAT 97
[2024-08-02 18:22] VITALS: BP 129/70; PULSE 89; O2SAT 97
== END 2024-08-02 18:22 | disposition home or self-care (01) ==
PROVIDERS: Emergency Medicine; Emergency Provider Family Medicine; PCP Physician Assistant
DX: F41.1 Generalized anxiety disorder (principal); R06.4 Hyperventilation; Z72.0 Tobacco use
CPT/HCPCS: 36415; 80053; 85025; 99283

== ENCOUNTER 2025-02-19 10:04 | Emergency (ER) | payer OTHER, SELFPAY ==
--- NOTE | 2025-02-19 10:06 | XRR_ITS ---
PROCEDURE INFORMATION: Exam: XR Left Shoulder Exam date and time: 02/19/2025 10:26 AM Age: 24 years old Clinical indication: Pain; Shoulder; Left; Additional info: Lt shoulder pain after fall from ladder TECHNIQUE: Imaging protocol: Radiologic exam of the left shoulder. Views: 2 or more views. COMPARISON: CT cervical spin wo con* [id number] 12/27/2022 5:56 PM FINDINGS: Bones/joints: There is a mild offset of the inferior aspect of the distal clavicle and acromion. No acute fracture or dislocation. Normal acromiohumeral interval. Soft tissues: Normal. XR/XR shoulder LT min 2V* [id number] IMPRESSION: Negative except for mild craniocaudal offset of the acromioclavicular joint. Mild AC injury can not be excluded and clinical correlation is recommended.
--- OUTSIDE RECORDS SUMMARY | 2025-02-19 10:08 | XMS_ITS | Clinical Summary ---
Author Organization [facility] Address [address] [place] [address] Phone Care Team Providers Care Dermatology Procedural Physician Name Role Phone Unavailable Primary Care Provider Unavailabl e Medications No known medications Active Problems Problem Noted Date Diagnosed Date Epidural hematoma 12/31/2022 Fracture of parietal bone of skull 12/31/2022 Social History Tobacco Use Types Packs/Day Years Used Date Smoking Tobacco: Never Tobacco Cessation:Counseling Given: Not Answered Feeling Safe Answer Date Recorded Are you in a relationship wi th someone who hurts you emotionally and/or physically? No 12/27/2022 Food Insecurity Answer Date Recorded Social/Environmental Concerns No concerns Transportation Needs Answer Date Record ed Social/Environmental Concerns No concerns Housing Stability Answer Date Recorded Social/Environmental Concerns No concerns Utility Needs Answer Date Recorded Social/Environmental Concerns No concerns Sex and Gender Information Value Date Recorded Sex Assigned at Not on file Legal Sex Male 3:50 PM CDT Gender Identity Not on file Sexual Orientation Not on file Last Filed Vital Signs Vital Sign Reading Time Taken Comments Blood Pressure 112/65 12/28/2022 7:58 AM CDT Pulse 69 12/28/2022 7:58 AM CDT Temperature 37.1 C (98.8 F) 12/28/2022 7:58 AM CDT Respiratory Rate 19 12/28/2022 7:58 AM CDT Oxygen Saturation 98% 12/28/2022 7:58 AM CDT Inhaled Oxygen Concentration - - Weight 68 kg (150 lb) 12/27/2022 11:46 PM CDT Height 188 cm (6' 2 ) 12/27/2022 11:46 PM CDT Body Mass Index 19.26 12/27/2022 11:46 PM CDT Plan of Treatment Health Maintenance Due Date Last Done Comments HPV VACCINES (1 - Male 3-dose series) 2013 DTAP/TDAP/TD VACCINES (1 - Tdap) 2017 HEPATITIS B VACCINES (1 of 3 - 19+ 3-dose series) 04/18 INFLUENZA VACCINE (#1) 2024 Advance Directives For more information, please contact: [phone] * Full Code (Latest Code Status on File) Date Activated Date Inactivated Comments 12/27/2022 10:24 PM 12/28/2022 1:53 PM
--- NOTE | 2025-02-19 10:09 | W.ED.UPPEXIN ---
HPI - Extremity Injury (Upper) General: Chief Complaint: Extremity Injury, Upper Stated Complaint: Fell of christine Mcdaniel shoulder Time Seen by Provider: 02/19/25 10:07 Source: patient Mode of arrival: ambulatory Limitations: no limitations History of Present Illness: 24-year-old male states that he fell off a ladder on onto his left shoulder. States has been having pain in that shoulder since then especially with movement and palpation. States pain is sharp in nature rates it a 6 out of 10 currently. Patient is able to lift his arm and states it does hurt denies any other injuries denies any his head denies any neck pain. Related Data Previous Rx's ?Medication ?Instructions ?Recorded epinephrine 0.3 mg/0.3 mL 0.3 mg (0.3 mL) IM Q20M PRN 12/06/23 injection, auto-injector (EpiPen anaphylaxis #2 ea 2-Demetrius) triamcinolone acetonide 0.5 % 1 applic topical BID #15 grams 04/20/24 topical ointment bupropion HCl 150 mg 24 hr tablet, 150 mg PO QAM #30 tabs 11/16/24 extended release (Wellbutrin XL) buspirone 10 mg tablet 20 mg (2 x 10 mg) PO BID #120 tabs 11/16/24 paroxetine HCl 20 mg tablet 20 mg PO DAILY #30 tabs 11/16/24 trazodone 50 mg tablet 50 mg PO .HS PRN insomnia #30 tabs 11/16/24 naproxen 500 mg tablet (Naprosyn) 500 mg PO BID PRN pain #20 tabs 02/19/25 Allergies Allergy/AdvReac Type Severity Reaction Status Date / Time metoclopramide (From Reglan) Allergy Mild ADR-Agitate Verified 08/04/24 12:56 d Review of Systems Musc: Reports: extremity pain PFSH ED PFSH: Medical History Muscle strain of left upper back, initial encounter Pain in scapula Psychiatric care No pertinent family history Surgical History No pertinent past surgical history Social History Smoking and tobacco/nicotine status: current every day tobacco/nicotine user Alcohol intake: current Substance/Drug Use: current Physical Exam Const: COMMON NORMALS: no acute distress, patient oriented x3 and healthy appearing HENMT: COMMON NORMALS: normocephalic and atraumatic HEAD & SCALP: normocephalic and atraumatic Neck/C-Spine: COMMON NORMALS: full ROM and supple Chest: COMMONS NORMALS: normal inspection of the chest Resp: COMMON NORMALS: normal respiratory effort Cardio: COMMON NORMALS: regular rate RATE: regular rate Extremity: NARRATIVE EXTREMITY EXAM: Tenderness over left lateral shoulder does have full range of motion no obvious deformity distal pulses sensation intact Neuro: COMMON NORMALS: patient oriented x3, moves all extremities and no focal motor deficits Psych: COMMON NORMALS: mental status grossly normal, Normal thought process present and cooperative THOUGHT PROCESS: Normal thought process present Skin: COMMON NORMALS: no rashes or lesions noted and no wounds GENERAL SKIN EXAM: no rashes or lesions noted Course Vital Signs: Vital signs: Vital Signs Temperature 97.7 F 02/19/25 10:10 Pulse Rate 88 02/19/25 10:10 Respiratory Rate 17 02/19/25 10:10 Blood Pressure 142/90 02/19/25 10:10 Pulse Oximetry 96 02/19/25 10:10 Oxygen Delivery Me thod Room Air 02/19/25 10:10 MDM - Extremity Injury (Upper) Medical Decision Making 24-year-old male presents here after a fall with left shoulder pain differential includes shoulder dislocation, clavicle fracture. I did review his x-ray of his shoulder here he has no signs of fracture dislocation possible AC joint separation. Will prescribe him Naprosyn he is to follow-up with orthopedics. I did go over these with him he is stable for discharge return if worsening he understands agrees to plan Medical Records I reviewed the patient's medical records. XR interpretation done by ED provider, pending radiology final review ED provider radiology interpretation(s): xr Left shoulder: possible ac joint seperation Discharge Plan Discharge Patient Disposition: Home Clinical Impression: Injury of left shoulder Condition: Stable Prescriptions: New naproxen [Naprosyn] 500 mg tablet 500 mg PO BID PRN (Reason: pain) Qty: 20 0RF No Action bupropion HCl [Wellbutrin XL] 150 mg tablet extended release 24 hr 150 mg PO QAM Qty: 30 2RF buspirone 10 mg tablet 20 mg PO BID Qty: 120 2RF paroxetine HCl 20 mg tablet 20 mg PO DAILY Qty: 30 2RF trazodone 50 mg tablet 50 mg PO .HS PRN (Reason: insomnia) Qty: 30 2RF EpiPen 2-Demetrius 0.3 mg/0.3 mL auto-injector 0.3 mg IM Q20M PRN (Reason: anaphylaxis) Qty: 2 0RF Rx Instructions: for 2 doses triamcinolone acetonide 0.5 % ointment 1 applic topical BID Qty: 15 0RF Discharge Orders: Discharge ED (Routine); Ordered 02/19/25 Ordered By: Miky Garsia Referrals: Elis Ko MD [Physician, Orthopedics] - 4-7 days Nadja Nance PA [Primary Care Provider, [facility] [employer] Quality Assurance Analyst] Discharge Diet: Advance as tolerated Discharge Activity: Resume usual activity Patient Instructions: Shoulder Sprain (ED) Print Language: Bruneian Coding Level of Care Code ED Chemical Dependency Nurse for Violet Villalobos
[2025-02-19 10:10] VITALS: BP 142/90; PULSE 88; RESP 17; TEMP 36.5; O2SAT 96; BMI 23.7
[2025-02-19] MEDS: HYDROcodone-acetaminophen 7.5-325 mg Tablet 1 TAB PO (10:15)
[2025-02-19 11:09] VITALS: BP 132/90; PULSE 89; RESP 17; TEMP 36.8; O2SAT 99
--- NOTE | 2025-02-21 16:14 | DCPLANNER ---
messaged ortho for er f/u
== END 2025-02-19 11:11 | disposition home or self-care (01) ==
PROVIDERS: Emergency Provider Emergency Medicine; PCP Physician Assistant
DX: S49.92XA Unspecified injury of left shoulder and upper arm, initial encounter (principal); Z72.0 Tobacco use; W11.XXXA Fall on and from ladder, initial encounter
CPT/HCPCS: 73030; 99283; J9999